=== PATIENT | female | born 1985 | race African-American/Black ===

== ENCOUNTER 2018-02-02 11:15 | Emergency (ER) | payer OTHER ==
[~2018-02-02] VITALS: Ht 172.7 cm; Wt 117.9 kg
[2018-02-02] MEDS ORDERED: SODIUM CHLORIDE 0.9% 500 ML IV ONE (13:06)
[2018-02-02] MEDS ORDERED: cefTRIAXone 1GM/10ml IVPUSH 10 ML IV ONE (13:15)
[2018-02-02] MEDS ORDERED: KETOROLAC TROMETH 30 MG/ML 1ML VIAL IV ONE (13:15)
[2018-02-02 13:41] LABS: Basophils # (auto) 0.1 uL; Basophils % (auto) 0.5 % (0.0-2.0); Eosinophils # (auto) 0 uL; Eosinophils % (auto) 0.1 % (0.0-7.0); Hematocrit 40.9 % (36.0-46.0); Hemoglobin 13.2 g/dL (12.2-16.2); Lymphocytes # (auto) 1.8 uL; Lymphocytes % (auto) 10.5 % (10.0-50.0); Mean Corpuscular Hemoglobin 28.4 pg (28.0-32.0); Mean Corpuscular Hgb Conc. 32.4 g/dL (32.0-36.0); Mean Corpuscular Volume 87.9 fL (80.0-100.0); Neutrophils # (auto) 13.9 uL; Neutrophils % (auto) 82.9 % (37.0-80.0); Platelet Count (auto) 307 10^3/uL (140-450); Red Blood Cells 4.66 10^6/uL (4.0-5.20); Red Cell Distribution Width 14.6 % (11.8-14.3); White Blood Cell 16.7 10^3/uL (4.4-10.8)
[2018-02-02 13:58] LABS: BUN/Creatinine Ratio 8.2; Calcium 9.1 mg/dL (8.5-10.1); Potassium 4.1 mmol/L (3.5-5.1)
[2018-02-02 15:46] VITALS: BP 114/74
[2018-02-02] MEDS ORDERED: ACETAMINOPHEN 325 MG TAB PO ONE (15:56)
[2018-02-02] MEDS ORDERED: methylPREDNISolone SOD SUCC 125 MG/2 ML VL IV ONE (17:00)
== END 2018-02-02 17:53 | disposition home or self-care (01) ==
LOC: EDBD 11:15 → ER 11:15
DX: J03.90 Acute tonsillitis, unspecified (principal); F17.210 Nicotine dependence, cigarettes, uncomplicated; R53.1 Weakness; Z90.710 Acquired absence of both cervix and uterus
CPT/HCPCS: 36415; 70490; 80048; 85025; 96374; 96375; 99285; J1885; J2930; J7040

== ENCOUNTER 2019-09-22 23:18 | Emergency (ER) | payer MEDICARE, OTHER ==
[~2019-09-22] VITALS: Ht 160 cm; Wt 120.7 kg
[2019-09-22 23:28] VITALS: BP 114/71
[2019-09-23] MEDS ORDERED: IBUPROFEN 800 MG TAB PO ONE (01:45)
[2019-09-23] MEDS ORDERED: ACETAMINOPHEN 500 MG TAB PO ONE (01:45)
== END 2019-09-23 02:25 | disposition home or self-care (01) ==
LOC: ER 23:23
DX: S83.92XA Sprain of unspecified site of left knee, initial encounter (principal); M62.830 Muscle spasm of back; F17.210 Nicotine dependence, cigarettes, uncomplicated; Z90.710 Acquired absence of both cervix and uterus; V09.9XXA Pedestrian injured in unspecified transport accident, initial encounter; Y93.01 Activity, walking, marching and hiking; Y92.481 Parking lot as the place of occurrence of the external cause; Y99.8 Other external cause status
CPT/HCPCS: 73562

== ENCOUNTER 2022-01-07 14:06 | Emergency (ER) | payer MEDICARE, OTHER ==
[~2022-01-07] VITALS: Ht 175.3 cm; Wt 127.0 kg
[2022-01-07 15:33] LABS: Basophils # (auto) 0.1 10 ^3/uL (0-0.2); Basophils % (auto) 0.8 % (0.0-2.0); Eosinophils # (auto) 0.1 10 ^3/uL (0-0.8); Eosinophils % (auto) 0.7 % (0.0-7.0); Hematocrit 37.5 % (36.0-46.0); Hemoglobin 12.6 g/dL (12.2-16.2); Lymphocytes # (auto) 2.4 10 ^3/uL (0.4-5.4); Mean Corpuscular Hemoglobin 29.4 pg (28.0-32.0); Mean Corpuscular Hgb Conc. 33.6 g/dL (32.0-36.0); Mean Corpuscular Volume 87.5 fL (80.0-100.0); Monocytes # (auto) 0.8 10 ^3/uL (0-1.3); Monocytes % (auto) 8.9 % (0.0-12.0); Neutrophils # (auto) 5.2 10 ^3/uL (1.6-8.6); Neutrophils % (auto) 61.6 % (37.0-80.0); Red Blood Cells 4.29 10^6/uL (4.0-5.20); Red Cell Distribution Width 14.7 % (11.8-14.3); White Blood Cell 8.5 10^3/uL (4.4-10.8)
[2022-01-07 15:52] LABS: Albumin 3.4 g/dL (3.4-5.0); BUN/Creatinine Ratio 13.3; Magnesium 2.3 mg/dL (1.6-2.6); Potassium 3.3 mmol/L (3.5-5.1)
[2022-01-07 15:55] LABS: Bilirubin, Total 0.4 mg/dL (0.2-1.0); Total Protein 7.9 g/dL (6.4-8.2)
[2022-01-07 20:44] VITALS: BP 105/67
== END 2022-01-07 21:49 | disposition home or self-care (01) ==
LOC: EDBD 14:06 → ER 14:08
DX: R07.89 Other chest pain (principal); F17.210 Nicotine dependence, cigarettes, uncomplicated; F12.10 Cannabis abuse, uncomplicated; Z32.02 Encounter for pregnancy test, result negative; Z90.710 Acquired absence of both cervix and uterus
CPT/HCPCS: 36415; 71045; 80053; 81025; 83735; 83880; 84484; 85025; 93005

== ENCOUNTER 2022-07-10 03:12 | Emergency (ER) | payer MEDICARE, OTHER ==
[~2022-07-10] VITALS: Ht 160 cm; Wt 111.0 kg
[2022-07-10] MEDS ORDERED: ACET-1158 PO (05:09)
[2022-07-10] MEDS ORDERED: PRED20TA2 PO ×2 (05:09→05:29)
[2022-07-10] MEDS ORDERED: AMOX-277 PO (05:09)
[2022-07-10 05:50] VITALS: BP 111/59
[2022-07-10 06:37] LABS: Urine Bacteria NONE SEEN /hpf (None Seen); Urine Blood 1+ /uL (Negative); Urine Mucus FEW (None Seen); Urine Specific Gravity 1.026 (1.001-1.035); Urine WBC 82 /hpf (0 - 5)
== END 2022-07-10 06:22 | disposition home or self-care (01) ==
LOC: ER 03:12
DX: J06.9 Acute upper respiratory infection, unspecified (principal); F17.210 Nicotine dependence, cigarettes, uncomplicated; Z20.822 Contact with and (suspected) exposure to COVID-19; Z90.710 Acquired absence of both cervix and uterus; Z98.890 Other specified postprocedural states
CPT/HCPCS: 36415; 81001; 87426; 87804

== ENCOUNTER 2024-04-20 11:08 | Emergency (ER) | payer MEDICARE, OTHER ==
[~2024-04-20] VITALS: Ht 160 cm; Wt 122.8 kg
[~2024-04-20 11:08] MED LIST: ACET500T58 PO; AMOX875T4 PO; CEPH-509 PO; IBUP-1456 PO; METH-1182 PO; PRED20TA2 PO
[2024-04-20 11:30] VITALS: BP 148/91; PULSE 97; RESP 18; O2SAT 97
[2024-04-20 11:59] LABS: Urine Bacteria None Seen /hpf (None Seen)
[2024-04-20 12:12] LABS: Urine Blood TRACE /uL (Negative); Urine Clarity Clear (Clear); Urine Color Yellow (Yellow); Urine Mucus FEW (None Seen); Urine Protein, UAD TRACE (Negative); Urine Specific Gravity 1.033 (1.001-1.035); Urine Urobilinogen Normal (Negative); Urine WBC 35 /hpf (0 - 5); Urine pH 5.5 (5.0-9.0)
== END 2024-04-20 16:02 | disposition left against medical advice (07) ==
LOC: ER 11:08
DX: R30.9 Painful micturition, unspecified (principal); M25.562 Pain in left knee; M25.561 Pain in right knee; Z53.21 Procedure and treatment not carried out due to patient leaving prior to being seen by health care provider
CPT/HCPCS: 81001

== ENCOUNTER 2024-09-29 08:56 | Inpatient (IN) | payer MEDICARE, OTHER ==
[~2024-09-29] VITALS: Ht 165.1 cm; Wt 122.0 kg
--- NOTE | 2024-09-29 10:01 | ED.PDOC ---
GI ASSESSMENT HPI Comments 39 year old female MARIANGEL presents to the ED with chief complaint of abdominal pain. Patient reports that she has been experiencing diffuse abdominal pain with associated nausea, vomiting, and right sided breast pain since yesterday. Patient relays that she currently has a colostomy bag in place and she had finished chemotherapy years ago for cancer. Patient denies any dysuria, diarrhea, fever, chills, dizziness, headache, or hematemesis. Chief Complaint: Abdominal Pain Time Seen by MD: 09:57 Primary Care Provider: unknown Reviewed Notes: Nurses Notes, Medications, Allergies Allergies: Coded Allergies: NO KNOWN ALLERGIES (Unverified , 02/02/18) Home Meds Active Scripts Methocarbamol (Methocarbamol) 750 Mg Tab, 750 MG PO BID, #20 TAB Prov:HARRIETT VENTURA 11/07/23 Ibuprofen (Ibuprofen) 800 Mg Tab, 1 TAB PO TID, #30 TAB Prov:HARRIETT VENTURA 11/07/23 Prednisone (Prednisone) 20 Mg Tab, 20 MG PO BID for 5 Days, #10 MG 0 Refills Prov:BRITTA SCOTT 07/10/22 Acetaminophen (Acetaminophen) 500 Mg Tab, 500 MG PO QIDP, #30 TAB 0 Refills Prov:BRITTA SCOTT 07/10/22 Amoxicillin & Pot Clavulanate (Amoxicillin/Potassium Cla) 875 Mg Tab, 1 TAB PO BID for 7 Days, #14 TAB 0 Refills Prov:BRITTA SCOTT 07/10/22 Cephalexin (KEFLEX 500) 500 Mg Cap, 1 CAP PO Q8HR for 7 Days, #21 CAP Prov:KENNY ORDONEZ MD 01/29/22 Information Source: Patient, Emergency Med Personnel Mode of Arrival: EMS Timing: Days Duration: Since onset Prehospital treatment: None Quality: Aching Vomitus: Watery Stool: Normal Severity: Moderate Recent: None Recent Hx of: Abdominal Surgery Pain Location: Diffuse Modifying Factors: Nothing Associated sign and symptoms: Nausea, Vomiting, Abdominal Pain Past Medical History PAST MEDICAL HISTORY: Cancer Surgical History: Hysterectomy Surgical History (Other): Colostomy [employer]ANT History: No Pertinent [employer] SAL[employer]ANT History Family History Family History: Reviewed,noncontributory to illness, Unknown Social History Smoker: Cigarettes, Less Than 1 Pack/Day Alcohol: Denies ETOH Use Drugs: Denies Drug Use Lives In: Home Constitutional: denies: chills, diaphoresis, fatigue, fever, malaise, sweats, weakness, others EENTM: denies: blurred vision, double vision, ear bleeding, ear discharge, ear drainage, ear pain, ear ringing, eye pain, eye redness, hearing loss, mouth pain, mouth swelling, nasal discharge, nose bleeding, nose congestion, nose pain, photophobia, tearing, throat pain, throat swelling, voice changes, others Respiratory: denies: cough, hemoptysis, orthopnea, SOB at rest, shortness of breath, SOB with excertion, stridor, wheezing, others Cardiovascular: denies: chest pain, dizzy spells, diaphoresis, Dyspnea on exertion, edema, irregular heart beat, left arm pain, lightheadedness, palpitations, PND, syncope, others Gastrointestinal: reports: abdominal pain, nausea, vomiting; denies: abdomen distended, blood streaked bowels, constipated, diarrhea, dysphagia, difficulty swallowing, hematemesis, melena, poor appetite, poor fluid intake, rectal bleeding, rectal pain, others Genitourinary: denies: abnormal vagina bleeding, burning, dyspareunia, dysuria, flank pain, frequency, hematuria, incontinence, pain, , vagina discharge, urgency, others Neurological: denies: dizziness, fainting, headache, left sided numbness, left sided weakness, numbness, paresthesia, pre-existing deficit, right sided numbness, right sided weakness, seizure, speech problems, tingling, tremors, weakness, others Musculoskeletal: reports: others (Rt sided breast pain); denies: back pain, gout, joint pain, joint swelling, muscle pain, muscle stiffness, neck pain Integumetry: denies: bruises, change in color, change in hair/nails, dryness, laceration, lesions, lumps, rash, wounds, others Allergic/Immunocompromised: denies: Difficulty Healing, Frequent Infections, Hives, Itching, others Hematologic/Lymphatic: denies: anemia, blood clots, easy bleeding, easy bruising, swollen glands, others Endocrine: denies: excessive hunger, excessive sweating, excessive thirst, excessive urination, flushing, intolerance to cold, intolerance to heat, un explained weight gain, unexplained weight loss, others Psychiatric: denies: anxiety, bipolar disorder, depression, hopeless, panic disorder, schizophrenia, sleepless, suicidal, others All Other Systems: Reviewed and Negative Physical Exam General Appearance: No Apparent Distress, Normal HEENT: Normal ENT Inspection, PERRL/EOMI Neck: Full Range of Motion, Non-Tender, Normal, Normal Inspection Respiratory: Chest Non-Tender, Lungs Clear, No Accessory Muscle Use, No Respiratory Distress, Normal Breath Sounds Cardiovascular: No Edema, No JVD, No Murmur, No Gallop, Normal Peripheral Pulses, Regular Rate/Rhythm Breast Exam: Deferred Gastrointestinal: No Organomegaly, No Pulsatile Mass, Normal Bowel Sounds, Soft, Tenderness (Diffuse tenderness), Other (Colostomy in place) Genitalia: Deferred Pelvic: Deferred Rectal: Deferred Extremities: No calf tenderness, Normal capillary refill, Normal inspection, Normal range of motion, Non-tender, No pedal edema Musculoskeletal : Apperance: Normal Neurologic: Alert, net coordinator II-XII nml as Tested, No Motor Deficits, Normal Affect, Normal Mood, No Sensory Deficits Cerebellar Function: Normal Reflexes: Normal Skin: Dry, Normal Color, Warm Lymphatic: No Adenopathy Was a procedure done? Was a procedure done?: No GI differential Dx Differential Diagnosis: UTI, Dehydration, Electrolyte Imbalance, Food Poisoning, Hypovolemia X-Ray, Labs, Meds, VS Vital Signs Date Time Temp Pulse Resp B/P (MAP) Pulse Ox O2 Delivery O2 Flow Rate FiO2 09/29/24 12:50 97.8 86 18 122/74 (90) 100 97.8 09/29/24 10:59 90 15 120/80 09/29/24 10:29 92 17 122/81 09/29/24 10:27 98.0 92 17 122/81 (95) 94 98.0 09/29/24 09:06 97.5 86 18 126/82 (97) 100 Lab Test 09/29/24 10:36 Range/Units White Blood Count 10.9 H 4.4-10.8 10^3/uL Red Blood Count 5.00 4.0-5.20 10^6/uL Hemoglobin 14.0 12.2-16.2 g/dL Hematocrit 42.7 36.0-46.0 % Mean Corpuscular Volume 85.5 80.0-100.0 fL Mean Corpuscular Hemoglobin 28.0 28.0-32.0 pg Mean Corpuscular Hemoglobin Concent 32.8 32.0-36.0 g/dL Red Cell Distribution Width 15.3 H 11.8-14.3 % Platelet Count 346 140-450 10^3/uL Mean Platelet Volume 7.8 6.9-10.8 fL Neutrophils (%) (Auto) 82.6 H 37.0-80.0 % Lymphocytes (%) (Auto) 11.3 10.0-50.0 % Monocytes (%) (Auto) 5.6 0.0-12.0 % Eosinophils (%) (Auto) 0.2 0.0-7.0 % Basophils (%) (Auto) 0.3 0.0-2.0 % Neutrophils # (Auto) 9.0 H 1.6-8.6 10 ^3/uL Lymphocytes # (Auto) 1.2 0.4-5.4 10 ^3/uL Monocytes # (Auto) 0.6 0-1.3 10 ^3/uL Eosinophils # (Auto) 0 0-0.8 10 ^3/uL Basophils # (Auto) 0 0-0.2 10 ^3/uL Nucleated Red Blood Cells 0.0 % Sodium Level 138 136-145 mmol/L Potassium Level 4.2 3.5-5.1 mmol/L Chloride Level 105 98-107 mmol/L Carbon Dioxide Level 27 20-31 mmol/L Anion Gap 6 5-15 Blood Urea Nitrogen 10 9-23 mg/dL Creatinine 0.82 0.550-1.02 mg/dL Glomerular Filtration Rate Calc 94 >90 mL/min BUN/Creatinine Ratio 12.2 10.0-20.0 Serum Glucose 119 H 74-106 mg/dL Calcium Level 9.5 8.7-10.4 mg/dL Total Bilirubin 0.4 0.2-1.0 mg/dL Aspartate Amino Transferase (AST) 15 13-40 U/L Alanine Aminotransferase (ALT) 22 7-40 U/L Alkaline Phosphatase 64 46-116 U/L Total Protein 6.3 5.7-8.2 g/dL Albumin 4.1 3.2-4.8 g/dL Current Medications Medications (Trade) Dose Ordered Sig/Oswaldo Route Start Time Stop Time Status Last Admin Sodium Chloride 1,000 ml @ 1,000 mls/hr Q1H ONCE IV 09/29/24 10:00 09/29/24 12:29 DC 09/29/24 10:29 Ondansetron HCl (Zofran) 4 mg ONCE ONCE IV 09/29/24 10:00 09/29/24 12:28 DC 09/29/24 10:28 Morphine Sulfate 4 mg ONCE ONCE IV 09/29/24 10:00 09/29/24 12:28 DC 09/29/24 10:29 Time of 1ST Reevaluation: 10:57 Reevaluation 1ST: Unchanged Patient Education/Counseling: Diagnosis, Treatment Family Education/Counseling: No Family Present Additional Information I reviewed the following notes from patient's past medical encounters: 04/20/24 for abdominal pain The following tests were ordered, and results were reviewed by me: CT Abd/Pel W/ IV Con, CBC, CMP, UA I reviewed and agreed with the following test results read by other providers: CT Abd/Pel W/ IV Con Additional Information was gathered from interviewing the following independent historians: none I discussed treatment and results with medical personnel. Departure 1 Departure Time of Disposition: 13:32 (Patient presented with abdominal pain that was concerning for possible appendicits, gastritis, cholecystitis, colitis, gastroenteritis, sbo, or orther possible surgical emergency. Data: 1. I ordered and reviewed the result of at least 3 labs including a CBC, BMP, and Urinalysis. 2. I independently interpreted the following tests: CT Abdoment and Pelvis is concerning for intractable abdominal pain _ .Risk:This patient has a high risk of morbidity due to further diagnostic testing or treatment and may suffer from an acute abdominal process disorder. Workup reveals intractable abdominal pain and patient should be admitted for further workup. and possible expert consultation. ) Impression: Primary Impression: Intractable abdominal pain Disposition: ADMITTED INPATIENT Admit to: Med Surg Condition: Serious Critical Care Note Critical Care Time?: No Stability Stability form required: No Heart Score Heart Score: Heart Score Response (Comments) Value History N/A 0 EKG N/A 0 Age N/A 0 Risk Factors N/A 0 Troponin N/A 0 Total 0 I personally scribed for BRIANNE PAZ MD ([email or web address]) on 09/29/24 at 10:01. Electronically submitted by Khari Gallo ([email or web address]). BRIANNE PAZ MD Sep 29, 2024 10:01
[2024-09-29] MEDS: ONDANSETRON HCL 4 MG/2 ML VIAL IV ONE (10:28)
[2024-09-29] MEDS: MORPHINE SULFATE 4 MG/ML SYR/VIAL IV ONE (10:29)
[2024-09-29] MEDS: SODIUM CHLORIDE 0.9% 1,000 ML IV ONE (10:29)
[2024-09-29 11:35] LABS: Basophils # (auto) 0 10 ^3/uL (0-0.2); Basophils % (auto) 0.3 % (0.0-2.0); Eosinophils # (auto) 0 10 ^3/uL (0-0.8); Eosinophils % (auto) 0.2 % (0.0-7.0); Hematocrit 42.7 % (36.0-46.0); Lymphocytes # (auto) 1.2 10 ^3/uL (0.4-5.4); Lymphocytes % (auto) 11.3 % (10.0-50.0); Mean Corpuscular Hgb Conc. 32.8 g/dL (32.0-36.0); Mean Corpuscular Volume 85.5 fL (80.0-100.0); Monocytes # (auto) 0.6 10 ^3/uL (0-1.3); Monocytes % (auto) 5.6 % (0.0-12.0); Neutrophils % (auto) 82.6 % (37.0-80.0); Platelet Count (auto) 346 10^3/uL (140-450); Red Cell Distribution Width 15.3 % (11.8-14.3); White Blood Cell 10.9 10^3/uL (4.4-10.8)
[2024-09-29 11:51] LABS: Alanine Aminotransferase 22 U/L (7-40); Calcium 9.5 mg/dL (8.7-10.4); Carbon Dioxide 27 mmol/L (20-31); Chloride 105 mmol/L (98-107)
[2024-09-29 11:52] LABS: Albumin 4.1 g/dL (3.2-4.8); Anion Gap 6 (5-15); Aspartate Aminotransferase 15 U/L (13-40); BUN/Creatinine Ratio 12.2 (10.0-20.0); Bilirubin, Total 0.4 mg/dL (0.2-1.0); Blood Urea Nitrogen 10 mg/dL (9-23); Glucose 119 mg/dL (74-106); Potassium 4.2 mmol/L (3.5-5.1); Sodium 138 mmol/L (136-145); Total Protein 6.3 g/dL (5.7-8.2)
[2024-09-29 12:27] LABS: Alkaline Phosphatase 64 U/L (46-116)
--- NOTE | 2024-09-29 13:08 | DVH ---
Exam: CT CT AB PEL WITH IV CON ONLY History: worsening abdominal pain, hx of colon ca s/p colostomy TECHNIQUE: A digital erosion control coordinator image was obtained. During the uneventful, intravenous administration of c ontrast material, multislice data acquisition was obtained through the abdomen and pelvis. The data s et was subsequently reconstructed into axial images. Images were reviewed on a work station using a c ombination of axial and multiplanar using a variety of window levels and settings. 100 cc of Omnipaqu e 300 contrast was injected intravenously. All CT scans at this medical facility are performed using dose modulation techniques as appropriate t o a performed exam including the following:Automated exposure control was utilized; adjustment of the MA and/or KV according to patient size; and use of iterative reconstruction technique. Radiation Dose Information: CT Dose: CTDI volume is 25 mGy. Dose-length product is 14 80 mGy*cm Comparison: None FINDINGS: Theliver, gallbladder, pancreas, kidneys, adrenal glands, and spleen appear within normal limits. There is no evidence of abdominal lymphadenopathy. There is no free fluid or free air. The stomach grossly appears unremarkable. There are large bowel postsurgical changes with left lower quadrant colostomy. There has likely been resection of the distal colon. There is presacral irregular soft tissue thickening which May relate to postsurgical changes. The remaining large bowel loops maki ear within normal limits filled with stool and air. There are mildly prominent fluid-filled small [place] wel loops in the lower abdomen measuring up to 2.7 cm in diameter. The abdominal aorta and IVC appear within normal limits. The bladder appears within normal limits the degree of distention. There is likely large calcified l eiomyoma in the uterus. There is no evidence of pelvic lymphadenopathy. There is no significant free fluid collection. Lung bases are clear. There is no acute osseous abnormality. IMPRESSION: 1. There are large bowel postsurgical changes with left lower quadrant colostomy. There is likely be en resection of the distal colon. There is presacral irregular soft tissue thickening which May relat e to postsurgical changes. Clinical correlation and comparison with any available prior CT studies is recommended. 2. There are mildly prominent fluid-filled small bowel loops in the lower abdomen. Small-bowel ileus not excluded. 3. Likely large calcified leiomyoma in the uterus. HS:Y
[2024-09-29 14:19] LABS: Urine Bacteria None Seen /hpf (None Seen)
[2024-09-29 14:37] LABS: Urine Blood Negative /uL (Negative); Urine Clarity Clear (Clear); Urine Color Light-Yellow (Yellow); Urine Protein, UAD 1+ (Negative); Urine Squamous Epithelial Cell FEW /hpf (<5); Urine Urobilinogen Normal (Negative); Urine WBC 1 /HPF (0-5)
[2024-09-29 14:41] LABS: Urine Specific Gravity > 1.050 (1.001-1.035)
[2024-09-29] MEDS ORDERED: DOCUSATE SOD 100 MG CAP PO PRN (14:45)
--- NOTE | 2024-09-29 14:57 | DVHHP2 ---
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 She came in today for complaints of abdominal pain, nausea, and vomiting. Patient states her symptoms began yesterday, she last vomited about 0200 this morning. States her abdomen is firm, the pain is right and left upper quadrant and that she has not had the normal about of stool output today. Heme/Onc: Cancer (Rhabdomyosarcoma 17 years ago, treated with surgery, chemo, & radiation) Past Surgical History: Other (Colostomy ) Family History: None Smoke: 1 pack per day ALCOHOL: rare Drugs: None Lives: with Family Domestic Violence: Neg Review of Systems Constitutional: No: Fever, Chills, Sweats, Weakness, Malaise, Other Eyes: No: Pain, Vision change, Conjunctivae inflammation, Eyelid inflammation, Other, Redness ENT: No: Ear pain, Ear discharge, Nose pain, Nose discharge, Nose congestion, Mouth pain, Mouth swelling, Throat pain, Throat swelling, Other Respiratory: No: Cough, Dry, Shortness of breath, SOB with excertion, Wheezing, Hemoptysis, Pleuritic Pain, Sputum, Wheezing, Other Cardiovascular: No: Chest Pain, Palpitations, Orthopnea, Paroxysmal Noc. Dyspnea, Edema, Lt Headedness, Other Gastrointestinal: Nausea, Vomiting, Abdominal Pain, Constipation; No: Diarrhea, Melena, Hematochezia, Other Genitourinary: No Dysuria, No Frequency, No Incontinence, No Hematuria, No Retention, No Other Musculoskeletal: No: other, neck pain, shoulder pain, arm pain, back pain, hand pain, leg pain, foot pain Skin: No: Rash, Lesions, Jaundice, Bruising, Other Neurological: No: Weakness, Numbness, Incoordination, Change in speech, Confusion, Seizures, Other Allergies: Coded Allergies: NO KNOWN ALLERGIES (Unverified , 02/02/18) Exam Vital Signs Vital Signs Date Time Temp Pulse Resp B/P (MAP) Pulse Ox O2 Delivery O2 Flow Rate FiO2 09/29/24 12:50 97.8 86 18 122/74 (90) 100 97.8 General Appearance: Alert, Oriented X3, mild distress HEENT: Atraumatic, PERRLA Respiratory: Clear to auscultation, Normal air movement Cardiovascular: Regular rate, Normal S1, Normal S2 Abdominal: Other (epigastric pain, colostomy in place with minimal output, abd firm) Extremities: No clubbing, No cyanosis, No edema, Normal pulses Skin: No rashes, No breakdown, No significant lesion Neuro: Normal gait, Normal speech, Strength at 5/5 X4 ext Psych/Mental Status: Mental status NL Labs/Xrays Labs Test 09/29/24 10:36 09/29/24 09:00 Range/Units White Blood Count 10.9 H 4.4-10.8 10^3/uL Red Blood Count 5.00 4.0-5.20 10^6/uL Hemoglobin 14.0 12.2-16.2 g/dL Hematocrit 42.7 36.0-46.0 % Mean Corpuscular Volume 85.5 80.0-100.0 fL Mean Corpuscular Hemoglobin 28.0 28.0-32.0 pg Mean Corpuscular Hemoglobin Concent 32.8 32.0-36.0 g/dL Red Cell Distribution Width 15.3 H 11.8-14.3 % Platelet Count 346 140-450 10^3/uL Mean Platelet Volume 7.8 6.9-10.8 fL Neutrophils (%) (Auto) 82.6 H 37.0-80.0 % Lymphocytes (%) (Auto) 11.3 10.0-50.0 % Monocytes (%) (Auto) 5.6 0.0-12.0 % Eosinophils (%) (Auto) 0.2 0.0-7.0 % Basophils (%) (Auto) 0.3 0.0-2.0 % Neutrophils # (Auto) 9.0 H 1.6-8.6 10 ^3/uL Lymphocytes # (Auto) 1.2 0.4-5.4 10 ^3/uL Monocytes # (Auto) 0.6 0-1.3 10 ^3/uL Eosinophils # (Auto) 0 0-0.8 10 ^3/uL Basophils # (Auto) 0 0-0.2 10 ^3/uL Nucleated Red Blood Cells 0.0 % Sodium Level 138 136-145 mmol/L Potassium Level 4.2 3.5-5.1 mmol/L Chloride Level 105 98-107 mmol/L Carbon Dioxide Level 27 20-31 mmol/L Anion Gap 6 5-15 Blood Urea Nitrogen 10 9-23 mg/dL Creatinine 0.82 0.550-1.02 mg/dL Glomerular Filtration Rate Calc 94 >90 mL/min BUN/Creatinine Ratio 12.2 10.0-20.0 Serum Glucose 119 H 74-106 mg/dL Calcium Level 9.5 8.7-10.4 mg/dL Total Bilirubin 0.4 0.2-1.0 mg/dL Aspartate Amino Transferase (AST) 15 13-40 U/L Alanine Aminotransferase (ALT) 22 7-40 U/L Alkaline Phosphatase 64 46-116 U/L Total Protein 6.3 5.7-8.2 g/dL Albumin 4.1 3.2-4.8 g/dL Urine Color Light-yellow Yellow Urine Clarity Clear Clear Urine pH 8.0 5.0-9.0 Urine Specific [place] > 1.050 H 1.001-1.035 Urine Protein 1+ H Negative Urine Ketones Negative Negative Urine Blood Negative Negative /uL Urine Nitrite Negative Negative Urine Bilirubin Negative Negative Urine Urobilinogen Normal Negative mg/dL Urine Leukocyte Esterase Negative Negative /uL Urine RBC 1 0 - 4 /hpf Urine Microscopic WBC 1 0-5 /HPF Urine Squamous Epithelial Cells Few <5 /hpf Urine Bacteria None seen None Seen /hpf Urine Glucose Normal Normal mg/dL Exam: CT CT AB PEL WITH IV CON ONLY FINDINGS: The liver, gallbladder, pancreas, kidneys, adrenal glands, and spleen appear within normal limits. There is no evidence of abdominal lymphadenopathy. There is no free fluid or free air. The stomach grossly appears unremarkable. There are large bowel postsurgical changes with left lower quadrant colostomy. There has likely been resection of the distal colon. There is presacral irregular soft tissue thickening which May relate to postsurgical changes. The remaining large bowel loops appear within normal limits filled with stool and air. There are mildly prominent fluid- filled small bowel loops in the lower abdomen measuring up to 2.7 cm in diameter. The abdominal aorta and IVC appear within normal limits. The bladder appears within normal limits the degree of distention. There is likely large calcified leiomyoma in the uterus. There is no evidence of pelvic lymphadenopathy. There is no significant free fluid collection. Lung bases are clear. There is no acute osseous abnormality. IMPRESSION: 1. There are large bowel postsurgical changes with left lower quadrant colostomy. There is likely been resection of the distal colon. There is presacral irregular soft tissue thickening which May relate to postsurgical changes. Clinical correlation and comparison with any available prior CT studies is recommended. 2. There are mildly prominent fluid-filled small bowel loops in the lower abdomen. Small-bowel ileus not excluded. 3. Likely large calcified leiomyoma in the uterus. Assessment/Plan Assessment/Plan Assessment: Intractable abdominal pain, Possible illus, Possible bowel obstruction, Plan: Admit to Med-Surg, GI consult, Clear liquid diet, Pain management, IV hydration, Plan discussed with: Patient My Orders Orders - NIKOLAI GALAN Procedure Category Date Status Time * Gi Dvh Puppy Sitter CONS 09/29/24 Transmitted 14:42 Admit ADMIT 09/29/24 Transmitted 14:42 Code Status CODE 09/29/24 Transmitted 14:42 Hydrocodone-Acet PHA 09/29/24 Transmitted 5/325mg Tab ([place] 14:45 Ondansetron Hcl PHA 09/29/24 Transmitted (Zofran) 14:45 Docusate Sodium PHA 09/29/24 Transmitted Capsule ([place] 14:45 Complete Blood Count LAB 09/30/24 Verified 04:00 Comprehensive LAB 09/30/24 Verified Metabolic Panel 04:00 Condition: Serious CHARLETTE 09/29/24 Transmitted 14:42 Acetaminophen Tablet PHA 09/29/24 Transmitted (Tylenol Tablet) 14:45 Clear Liq Diet DIET 09/29/24 Transmitted Dinner Date of Service: Sep 29, 2024 Billing Provider: NIKOLAI GALAN Common Visit Codes: [id number] INP/OBS CARE (MOD) NIKOLAI GALAN Sep 29, 2024 14:56
[2024-09-29 15:52] VITALS: BP 120/70; PULSE 67; PULSE 76; RESP 16; RESP 18; TEMP 98.4; O2SAT 100; O2SAT 98
[2024-09-29 16:06] VITALS: BP 120/70; PULSE 67; RESP 18; TEMP 98.4; O2SAT 100
[2024-09-29] MEDS: HYDROcodone-ACET 5/325MG TAB PO PRN (20:06)
[2024-09-29 21:00] VITALS: BP 134/73; PULSE 86; RESP 19; TEMP 98.7; O2SAT 95
[2024-09-30 01:00] VITALS: BP 122/57; PULSE 79; RESP 20; TEMP 98.2; O2SAT 97
[2024-09-30 05:00] VITALS: BP 128/66; PULSE 98; RESP 20; TEMP 98.9; O2SAT 94
[2024-09-30 06:38] LABS: Basophils # (auto) 0 10 ^3/uL (0-0.2); Basophils % (auto) 0.2 % (0.0-2.0); Eosinophils # (auto) 0 10 ^3/uL (0-0.8); Eosinophils % (auto) 0.5 % (0.0-7.0); Hematocrit 40.2 % (36.0-46.0); Lymphocytes # (auto) 0.4 10 ^3/uL (0.4-5.4); Lymphocytes % (auto) 6.9 % (10.0-50.0); Mean Corpuscular Hemoglobin 27.9 pg (28.0-32.0); Mean Corpuscular Hgb Conc. 32.4 g/dL (32.0-36.0); Monocytes # (auto) 0.3 10 ^3/uL (0-1.3); Monocytes % (auto) 5.3 % (0.0-12.0); Neutrophils # (auto) 5.3 10 ^3/uL (1.6-8.6); Neutrophils % (auto) 87.1 % (37.0-80.0); Nucleated Red Blood Cells % 0.1 %; Platelet Count (auto) 319 10^3/uL (140-450); Red Blood Cells 4.67 10^6/uL (4.0-5.20); Red Cell Distribution Width 15.3 % (11.8-14.3); White Blood Cell 6.1 10^3/uL (4.4-10.8)
[2024-09-30 07:19] LABS: Alanine Aminotransferase 18 U/L (7-40); Alkaline Phosphatase 56 U/L (46-116); Anion Gap 8 (5-15); BUN/Creatinine Ratio 6.3 (10.0-20.0); Carbon Dioxide 23 mmol/L (20-31); Chloride 103 mmol/L (98-107)
[2024-09-30 07:20] LABS: Albumin 3.8 g/dL (3.2-4.8); Bilirubin, Total 0.8 mg/dL (0.2-1.0)
[2024-09-30 07:30] LABS: Aspartate Aminotransferase 12 U/L (13-40); Blood Urea Nitrogen 6 mg/dL (9-23); Glucose 129 mg/dL (74-106); Sodium 134 mmol/L (136-145)
[2024-09-30 08:00] VITALS: PULSE 82; RESP 16; O2SAT 96
[2024-09-30 09:00] VITALS: BP 114/67; PULSE 103; RESP 20; TEMP 98.5; O2SAT 99
--- NOTE | 2024-09-30 09:45 | DVHPN2 ---
Subjective patient notes BM in colostomy bad . pain with minimal improvement. Taking norco regulary in hospital. Reviewed: H&P Changes from previous H/P or p: No Changes Eyes: No Pain, No Vision change, No Conjunctivae inflammation, No Eyelid inflammation, No Other, No Redness ENT: No Ear pain, No Ear discharge, No Nose pain, No Nose discharge, No Nose congestion, No Mouth pain, No Mouth swelling, No Throat pain, No Throat swelling, No Other Cardiovascular: No Chest Pain, No Palpitations, No Orthopnea, No Paroxysmal Noc. Dyspnea, No Edema, No Lt Headedness, No Other Respiratory: No Cough, No Dry, No Shortness of breath, No SOB with excertion, No Wheezing, No Hemoptysis, No Pleuritic Pain, No Sputum, No Other Gastrointestinal: Nausea, Vomiting, Abdominal Pain; No Diarrhea; Constipation; No Melena, No Hematochezia, No Other Genitourinary: No Dysuria, No Frequency, No Incontinence, No Hematuria, No Retention, No Other Musculoskeletal: No other, No neck pain, No shoulder pain, No arm pain, No back pain, No hand pain, No leg pain, No foot pain Skin: No Rash, No Lesions, No Jaundice, No Bruising, No Other Objective Vitals Vital Signs Date Time Temp Pulse Resp B/P (MAP) Pulse Ox O2 Delivery O2 Flow Rate FiO2 09/30/24 05:00 98.9 98 20 128/66 (86) 94 98.9 09/29/24 23:09 Room Air* 0 21 Intake/Output Intake and Output 09/30/24 07:00 Intake Total 2080 ml Balance 2080 ml Intake Oral 1080 ml IV Total 1000 ml # Voids 3 # Bowel Movements 1 General Appearance: Alert, Oriented X3 HEENT: Atraumatic Lungs: Clear to auscultation Cardiovascular: Regular rate, Normal S1, Normal S2 Abdomen: Other (colostomy in place LLQ. TTP over the Epigastric and umbilical region. ) Extremities: Other (1+ edema LE to claf .) Psych/Mental Status: Mental status NL Medications Current Medications Medications Dose Ordered Sig/Oswaldo Route Start Time Stop Time Status Last Admin Dose Admin Acetaminophen/ Hydrocodone Bitart 1 tab Q4HP PRN PO 09/29/24 14:45 09/30/24 02:15 1 TAB Ondansetron HCl 4 mg Q4HP PRN IV 2/11/25 14:45 Docusate Sodium 100 mg BIDPRN PRN PO 09/29/24 14:45 Acetaminophen 650 mg Q6HP PRN PO 09/29/24 14:45 Laboratory Results Laboratory Tests 09/30/24 05:50 Chemistry Test 09/29/24 10:36 09/30/24 05:50 Albumin 4.1 g/dL (3.2-4.8) 3.8 g/dL (3.2-4.8) Calcium Level 9.5 mg/dL (8.7-10.4) 9.0 mg/dL (8.7-10.4) Total Protein 6.3 g/dL (5.7-8.2) 6.0 g/dL (5.7-8.2) LFT Test 09/29/24 10:36 09/30/24 05:50 Alanine Aminotransferase (ALT) 22 U/L (7-40) 18 U/L (7-40) Alkaline Phosphatase 64 U/L (46-116) 56 U/L (46-116) Aspartate Amino Transferase (AST) 15 U/L (13-40) 12 U/L (13-40) L Total Bilirubin 0.4 mg/dL (0.2-1.0) 0.8 mg/dL (0.2-1.0) Urinalysis Test 09/29/24 09:00 Urine Color Light-yellow (Yellow) Urine Clarity Clear (Clear) Urine pH 8.0 (5.0-9.0) Urine Specific [place] > 1.050 (1.001-1.035) Urine Protein 1+ (Negative) H Urine Ketones Negative (Negative) Urine Blood Negative /uL (Negative) Urine Nitrite Negative (Negative) Urine Bilirubin Negative (Negative) Urine Urobilinogen Normal mg/dL (Negative) Urine Leukocyte Esterase Negative /uL (Negative) Urine RBC 1 /hpf (0 - 4) Urine Microscopic WBC 1 /HPF (0-5) Urine Squamous Epithelial Cells Few /hpf (<5) Urine Bacteria None seen /hpf (None Seen) Urine Glucose Normal mg/dL (Normal) Assessment/Plan Assessment/Plan Intractable abdominal pain, illus Right breast mass Obesity - CLD - limit IV fluids - BNP for LE edema - Ct Chest for right breast mass - limit opiods. - f/u GI consult. Plan discussed with: Patient My Orders Orders - KIERSTEN JACKSON MD Procedure Category Date Status Time Chest Without Contrast CT 09/30/24 Logged 09:28 B-Type Natriuretic LAB 09/30/24 Logged Peptide 09:32 Complete Blood Count LAB 10/01/24 Verified 04:00 Comprehensive LAB 09/30/24 Logged Metabolic Panel 09:32 Date of Service: Sep 30, 2024 Billing Provider: KIERSTEN JACKSON MD Common Visit Codes: [id number] INP/OBS CARE(HIGH) KIERSTEN JACKSON MD Sep 30, 2024 09:45
--- NOTE | 2024-09-30 11:28 | DVH ---
Procedure: CT CHEST WITHOUT CONTRAST Reason for study/Clinical History: Right breast mass @ 9 o clock . Comparison Study: None available at time of dictation. Exam Date: 09/30/2024 09:45 AM TECHNIQUE: Multidetector CT of the chest was performed from the lung apices to the upper abdomen with out the use of intravenous contract. Axial, coronal and sagittal multiplanar reformats were performed . Radiation Dose Information: CT Dose: CTDI volume is 30.63 mGy. Dose-length product is 937.49 mGy*cm The dose indicators for CT are the volume Computed Tomography (CT) Dose Index (CTDIvol) and the Dose Length Product (DLP), and are measured in units of mGy and mGy-cm, respectively. These indicators are not patient dose, but values generated from the CT scanner acquisition factors. The report includes radiation exposure data for exposures received during this examination. FINDINGS: Lower neck: Normal thyroid. Lungs: No focal consolidation, pleural effusion or pneumothorax. Heart/Vascular Structures: Normal heart size. No pericardial effusion. Lymph Nodes: No adenopathy Pleura: No pleural effusion or significant pneumothorax. Musculoskeletal: No acute osseous abnormality. Soft tissues: Normal. Upper abdomen: Limited portions of the upper abdomen are unremarkable. IMPRESSION: No acute intrathoracic abnormality. Radiation optimization: All CT scans at this facility use at least one of these dose optimization katie hniques: automated exposure control mA and/or kV adjustment per patient size (includes targeted exam s where dose is matched to clinical indication) or iterative reconstruction.
--- NOTE | 2024-09-30 11:52 | DVHINCON2 ---
GI Consult Consult Note GI consult note Date of Consultation: 09/30/2024 Chief Complaint: Abdominal pain Referring Physician: Roberto BECKER H&P: 39-year-old female with PMH of rhabdomyosarcoma, which was diagnosed 17 years ago, treated with chemo and radiation, and SP colostomy bag, presented to ER with abdominal pain mostly in the upper abdomen, for three days Patient had nausea and vomiting. No hematemesis Patient now has watery stool, no melena or red blood in stool Colonoscopy more than 10 years ago unsure about results Past Medical History: Cancer (Rhabdomyosarcoma 17 years ago, treated with surgery, chemo, & radiation) Past Surgical History: Colostomy Social History: Smoke: 1 pack per day ALCOHOL: rare Drugs: None Lives: with Family Family History: Noncontributory Review of Systems: Constitutional: no fever, chill, weight loss HEENT: no eye pain, no hearing loss, no oral lesion, no scleral icterus Heart: no chest pain, no chest pressure Lung: no cough, no dyspnea with exertion Abdomen: see HPI Physical exam: General: NAD, AAOX3 Chest: lung chandler clear to auscultation Heart: RRR, no murmur Abdomen: Mild generalized tenderness to palpation, +BS Labs: Labs Test 09/30/24 11:00 09/30/24 05:50 09/29/24 09:00 Range/Units White Blood Count 6.1 # 4.4-10.8 10^3/uL Red Blood Count 4.67 4.0-5.20 10^6/uL Hemoglobin 13.0 12.2-16.2 g/dL Hematocrit 40.2 36.0-46.0 % Mean Corpuscular Volume 86.0 80.0-100.0 fL Mean Corpuscular Hemoglobin 27.9 L 28.0-32.0 pg Mean Corpuscular Hemoglobin Concent 32.4 32.0-36.0 g/dL Red Cell Distribution Width 15.3 H 11.8-14.3 % Platelet Count 319 140-450 10^3/uL Mean Platelet Volume 7.6 6.9-10.8 fL Neutrophils (%) (Auto) 87.1 H 37.0-80.0 % Lymphocytes (%) (Auto) 6.9 L 10.0-50.0 % Monocytes (%) (Auto) 5.3 0.0-12.0 % Eosinophils (%) (Auto) 0.5 0.0-7.0 % Basophils (%) (Auto) 0.2 0.0-2.0 % Neutrophils # (Auto) 5.3 1.6-8.6 10 ^3/uL Lymphocytes # (Auto) 0.4 0.4-5.4 10 ^3/uL Monocytes # (Auto) 0.3 0-1.3 10 ^3/uL Eosinophils # (Auto) 0 0-0.8 10 ^3/uL Basophils # (Auto) 0 0-0.2 10 ^3/uL Nucleated Red Blood Cells 0.1 % Urine Color Light-yellow Yellow Urine Clarity Clear Clear Urine pH 8.0 5.0-9.0 Urine Specific [place] > 1.050 H 1.001-1.035 Urine Protein 1+ H Negative Urine Ketones Negative Negative Urine Blood Negative Negative /uL Urine Nitrite Negative Negative Urine Bilirubin Negative Negative Urine Urobilinogen Normal Negative mg/dL Urine Leukocyte Esterase Negative Negative /uL Urine RBC 1 0 - 4 /hpf Urine Microscopic WBC 1 0-5 /HPF Urine Squamous Epithelial Cells Few <5 /hpf Urine Bacteria None seen None Seen /hpf Urine Glucose Normal Normal mg/dL Imaging: CT abdomen pelvis IMPRESSION: 1. There are large bowel postsurgical changes with left lower quadrant colostomy. There is likely been resection of the distal colon. There is presacral irregular soft tissue thickening which May relate to postsurgical changes. Clinical correlation and comparison with any available prior CT studies is recommended. 2. There are mildly prominent fluid-filled small bowel loops in the lower ab domen. Small-bowel ileus not excluded. 3. Likely large calcified leiomyoma in the uterus. Chest CT IMPRESSION: No acute intrathoracic abnormality. Assessment: Acute abdominal pain Possible ileus. Possible bowel obstruction History of rhabdomyosarcoma, with colostomy bag Plan: Discussed with Dr. Weiner Small-bowel series with Gastrografin Monitor lab Clear liquid diet We will continue to monitor the patient Plan discussed with patient and RN Thank you for this consult Date of Service: Sep 30, 2024 Billing Provider: MICAH OVALLE Common Visit Codes: CONSULT ONLY Consultation Codes: [id number] CONSULT <60MIN MICAH OVALLE Sep 30, 2024 11:52
[2024-09-30] MEDS: GASTROGRAFIN 120 ML SOL ONE (12:35)
--- NOTE | 2024-09-30 12:35 | DVH ---
Date: 09/30/2024 11:35 AM Examination: XY KUB ABDOMEN SINGLE VIEW History: f/u ileus Comparison: 09/29/2024 TECHNIQUE: Frontal views of the abdomen was obtained. FINDINGS: Dilated loops of small bowel measuring up to 4.8 cm. The lung bases are unremarkable. No acute osseous abnormality identified. IMPRESSION: Dilated loops small bowel measuring up to 4.8 cm. Findings may reflect ileus versus small-bowel obstr uction
[2024-09-30 13:29] LABS: Alanine Aminotransferase 23 U/L (7-40); Alkaline Phosphatase 57 U/L (46-116); Anion Gap 9 (5-15); Aspartate Aminotransferase 23 U/L (13-40); BUN/Creatinine Ratio 6.7 (10.0-20.0); Bilirubin, Total 0.7 mg/dL (0.2-1.0); Calcium 9.2 mg/dL (8.7-10.4); Carbon Dioxide 21 mmol/L (20-31); Chloride 104 mmol/L (98-107); Glucose 105 mg/dL (74-106); Potassium 4.3 mmol/L (3.5-5.1); Total Protein 6.3 g/dL (5.7-8.2)
[2024-09-30 13:45] LABS: Blood Urea Nitrogen 7 mg/dL (9-23); Sodium 134 mmol/L (136-145)
[2024-09-30 17:00] VITALS: BP 115/69; PULSE 101; RESP 19; TEMP 98.3; O2SAT 98
[2024-09-30 21:00] VITALS: BP 117/74; PULSE 106; RESP 18; TEMP 98.4; O2SAT 95
[2024-09-30] MEDS: ACETAMINOPHEN 325 MG TAB PO PRN (23:45)
[2024-10-01] VITALS (7 sets, daily range): BP systolic 103–125; BP diastolic 58–74; PULSE 90–118; RESP 17–19; TEMP 98.1–98.7; O2SAT 96–100
[2024-10-01 07:35] LABS: Basophils # (auto) 0 10 ^3/uL (0-0.2); Basophils % (auto) 0.2 % (0.0-2.0); Eosinophils # (auto) 0.2 10 ^3/uL (0-0.8); Eosinophils % (auto) 3.7 % (0.0-7.0); Hematocrit 43.1 % (36.0-46.0); Hemoglobin 14.8 g/dL (12.2-16.2); Lymphocytes # (auto) 1.5 10 ^3/uL (0.4-5.4); Lymphocytes % (auto) 23.5 % (10.0-50.0); Mean Corpuscular Hemoglobin 29.4 pg (28.0-32.0); Mean Corpuscular Hgb Conc. 34.3 g/dL (32.0-36.0); Mean Corpuscular Volume 85.6 fL (80.0-100.0); Monocytes # (auto) 1.1 10 ^3/uL (0-1.3); Monocytes % (auto) 17.3 % (0.0-12.0); Neutrophils # (auto) 3.6 10 ^3/uL (1.6-8.6); Neutrophils % (auto) 55.3 % (37.0-80.0); Platelet Count (auto) 373 10^3/uL (140-450); Red Blood Cells 5.03 10^6/uL (4.0-5.20); Red Cell Distribution Width 15.1 % (11.8-14.3); White Blood Cell 6.5 10^3/uL (4.4-10.8)
--- NOTE | 2024-10-01 10:49 | DVHPN2 ---
Subjective patient sleeping comfrotably. Pain improved. BM in colosotmy bag. Reviewed: H&P Changes from previous H/P or p: No Changes Eyes: No Pain, No Vision change, No Conjunctivae inflammation, No Eyelid inflammation, No Other, No Redness ENT: No Ear pain, No Ear discharge, No Nose pain, No Nose discharge, No Nose congestion, No Mouth pain, No Mouth swelling, No Throat pain, No Throat swelling, No Other Cardiovascular: No Chest Pain, No Palpitations, No Orthopnea, No Paroxysmal Noc. Dyspnea, No Edema, No Lt Headedness, No Other Respiratory: No Cough, No Dry, No Shortness of breath, No SOB with excertion, No Wheezing, No Hemoptysis, No Pleuritic Pain, No Sputum, No Other Gastrointestinal: Nausea, Vomiting, Abdominal Pain; No Diarrhea; Constipation; No Melena, No Hematochezia, No Other Genitourinary: No Dysuria, No Frequency, No Incontinence, No Hematuria, No Retention, No Other Musculoskeletal: No other, No neck pain, No shoulder pain, No arm pain, No back pain, No hand pain, No leg pain, No foot pain Skin: No Rash, No Lesions, No Jaundice, No Bruising, No Other Objective Vitals Vital Signs Date Time Temp Pulse Resp B/P (MAP) Pulse Ox O2 Delivery O2 Flow Rate FiO2 10/01/24 09:00 98.2 90 17 110/58 (75) 99 98.2 10/01/24 08:00 Room Air* 0 21 Intake/Output Intake and Output 10/01/24 07:00 Intake Total 650 ml Output Total 1450 ml Balance -800 ml Intake Oral 650 ml Output Urine Total 300 ml Stool Total 1150 ml # Voids 10 General Appearance: Alert, Oriented X3 HEENT: Atraumatic Lungs: Clear to auscultation Cardiovascular: Regular rate, Normal S1, Normal S2 Abdomen: Other (colostomy in place LLQ. TTP over the Epigastric and umbilical region. ) Extremities: Other (1+ edema LE to claf .) Psych/Mental Status: Mental status NL Medications Current Medications Medications Dose Ordered Sig/Oswaldo Route Start Time Stop Time Status Last Admin Dose Admin Acetaminophen/ Hydrocodone Bitart 1 tab Q4HP PRN PO 09/29/24 14:45 09/30/24 02:15 1 TAB Ondansetron HCl 4 mg Q4HP PRN IV 09/29/24 14:45 Docusate Sodium 100 mg BIDPRN PRN PO 09/29/24 14:45 Acetaminophen 650 mg Q6HP PRN PO 09/29/24 14:45 09/30/24 23:45 650 MG Laboratory Results Laboratory Tests 09/30/24 11:00 10/01/24 07:12 Chemistry Test 09/30/24 11:00 Albumin 4.0 g/dL (3.2-4.8) Calcium Level 9.2 mg/dL (8.7-10.4) Total Protein 6.3 g/dL (5.7-8.2) LFT Test 09/30/24 11:00 Alanine Aminotransferase (ALT) 23 U/L (7-40) Alkaline Phosphatase 57 U/L (46-116) Aspartate Amino Transferase (AST) 23 U/L (13-40) Total Bilirubin 0.7 mg/dL (0.2-1.0) Urinalysis Test 09/29/24 09:00 Urine Color Light-yellow (Yellow) Urine Clarity Clear (Clear) Urine pH 8.0 (5.0-9.0) Urine Specific [place] > 1.050 (1.001-1.035) Urine Protein 1+ (Negative) H Urine Ketones Negative (Negative) Urine Blood Negative /uL (Negative) Urine Nitrite Negative (Negative) Urine Bilirubin Negative (Negative) Urine Urobilinogen Normal mg/dL (Negative) Urine Leukocyte Esterase Negative /uL (Negative) Urine RBC 1 /hpf (0 - 4) Urine Microscopic WBC 1 /HPF (0-5) Urine Squamous Epithelial Cells Few /hpf (<5) Urine Bacteria None seen /hpf (None Seen) Urine Glucose Normal mg/dL (Normal) Assessment/Plan Assessment/Plan Intractable abdominal pain illus Right breast mass - f/u outpaint. Obesity - CLD - Continue bowel rest - limit opioids. - F/u with GI reccs. Plan discussed with: Patient My Orders Orders - KIERSTEN JACKSON MD Procedure Category Date Status Time Clostridium Difficile [place] 09/30/24 In Process Toxin 12:07 Date of Service: Oct 01, 2024 Billing Provider: KIERSTEN JACKSON MD Common Visit Codes: [id number] INP/OBS CARE(HIGH) KIERSTEN JACKSON MD Oct 01, 2024 10:49
--- NOTE | 2024-10-01 11:02 | DVHPNRES ---
Progress Note Date Seen: Oct 01, 2024 Resident Creating Document: FABIOLA ULLOA RESIDENT Medical Necessity Reason Pt with a Central, PICC or Fol: No Subjective Review of Systems H&P: 39-year-old female with PMH of rhabdomyosarcoma, which was diagnosed 17 years ago, treated with chemo and radiation, and SP colostomy bag, presented to ER with abdominal pain mostly in the upper abdomen, for three days Patient had nausea and vomiting. No hematemesis Patient now has watery stool, no melena or red blood in stool Colonoscopy more than 10 years ago unsure about results Past Medical History: Cancer (Rhabdomyosarcoma 17 years ago, treated with surgery, chemo, & radiation) Past Surgical History: Colostomy No new complaints. Advanced diet. Soft mechanical diet. Patient had watery stool in ileostomy bag. Objective vital signs Vital Sign Date Time Temp Pulse Resp B/P (MAP) Pulse Ox O2 Delivery O2 Flow Rate FiO2 10/01/24 09:00 98.2 90 17 110/58 (75) 99 98.2 10/01/24 08:00 Room Air* 0 21 Total Intake and Output 09/30/24 09/30/24 10/01/24 15:00 23:00 07:00 Intake Total 250 ml 400 ml Output Total 300 ml 1150 ml Balance -50 ml -750 ml medications Current Medications Medications Dose Ordered Sig/Oswaldo Route Start Time Stop Time Status Last Admin Dose Admin Acetaminophen/ Hydrocodone Bitart 1 tab Q4HP PRN PO 09/29/24 14:45 09/30/24 02:15 1 TAB Ondansetron HCl 4 mg Q4HP PRN IV 09/29/24 14:45 Docusate Sodium 100 mg BIDPRN PRN PO 09/29/24 14:45 Acetaminophen 650 mg Q6HP PRN PO 09/29/24 14:45 09/30/24 23:45 650 MG Examination General Appearance: Cooperative. Well developed. Well nourished. NAD Head Exam: Normal inspection Neck Exam: Normal inspection. Non-tender. Normal alignment Pulmonary/Respiratory: Chest non-tender. Clear bilateral breath sounds Cardiovascular/Chest: Regular rate and rhythm. No murmurs. No JVD. Peripheral Pulses: 2+ Radial (R). 2+ Radial (L). 2+ Pedal (R). 2+ Pedal (L) Abdominal Exam: Normal bowel sounds. Soft. Nontender. No hepatospenomegaly. No masses, presence of colostomy bag, bowel sounds present. Ankle Exam: Negative ankle edema Lower extremities: Negative lower extremity edema Neuro/Mental Status: A&O x4. Coherent Thoughts/Psych: Normal thought pattern. Appropriate mood and affect. Good judgement and insight Appearance: In no acute distress Skin Exam: Normal inspection. Normal color. Warm. Dry laboratory and microbiology Laboratory Tests 10/01/24 07:12 09/30/24 11:00 Test 09/30/24 11:00 Range/Units Serum Glucose 105 74-106 mg/dL Problem List/Assessment/Plan Problem List/Assessment/Plan Acute abdominal pain Ruled out small-bowel obstruction Ileus History of rhabdomyosarcoma, with colostomy bag Plan: Discussed with Dr. Weiner -Small-bowel series with Gastrografin: radiology report of small-bowel series pending however patient had bowel movement, ruled out SBO. -Advanced diet as toleration, start with mechanical soft diet -Conservative management for nausea and vomiting, no any acute GI intervention needed at this point. -We will continue to monitor the patient -Plan discussed with patient and RN Plan discussed with: Patient, Other (RN) My Orders My Orders Orders - FABIOLA ULLOA Procedure Category Date Status Time Mechanical Soft Diet DIET 10/01/24 Transmitted Lunch FABIOLA ULLOA Oct 01, 2024 11:02
--- NOTE | 2024-10-01 18:44 | DVH ---
Procedure: XY SMALL BOWEL SERIES-W GASTROGRA Exam Date: 09/30/2024 03:03 PM Reason for study/Clinical History: abd pain. possible ileus Comparison Study: None available at time of dictation. Findings: Dilated loops small bowel measuring up to 4.8 cm. Findings may reflect ileus versus small-bowel obstr uction IMPRESSION: Dilated loops small bowel measuring up to 4.8 cm. Findings may reflect ileus versus small-bowel obstr uction No contrast in colon END IMPRESSION:
[2024-10-02 01:00] VITALS: BP 107/70; PULSE 117; RESP 18; TEMP 98.1; O2SAT 100
[2024-10-02 05:00] VITALS: BP 103/69; PULSE 104; RESP 18; TEMP 98; O2SAT 99
[2024-10-02 09:00] VITALS: BP 98/60; PULSE 94; RESP 16; TEMP 97.7; O2SAT 94
--- NOTE | 2024-10-02 10:49 | DVHDS2 ---
Discharge Summary Date of Admission Sep 29, 2024 at 14:42 Date of Discharge: Oct 02, 2024 Admitting Diagnosis Illeus Partial SBO Labs/Diagnostic Data: Laboratory Results Test 10/01/24 07:12 09/30/24 11:00 09/30/24 05:50 09/29/24 09:00 White Blood Count 6.5 10^3/uL (4.4-10.8) Red Blood Count 5.03 10^6/uL (4.0-5.20) Hemoglobin 14.8 g/dL (12.2-16.2) Hematocrit 43.1 % (36.0-46.0) Mean Corpuscular Volume 85.6 fL (80.0-100.0) Mean Corpuscular Hemoglobin 29.4 pg (28.0-32.0) Mean Corpuscular Hemoglobin Concent 34.3 g/dL (32.0-36.0) Red Cell Distribution Width 15.1 % (11.8-14.3) Platelet Count 373 10^3/uL (140-450) Mean Platelet Volume 7.5 fL (6.9-10.8) Neutrophils (%) (Auto) 55.3 % (37.0-80.0) Lymphocytes (%) (Auto) 23.5 % (10.0-50.0) Monocytes (%) (Auto) 17.3 % (0.0-12.0) Eosinophils (%) (Auto) 3.7 % (0.0-7.0) Basophils (%) (Auto) 0.2 % (0.0-2.0) Neutrophils # (Auto) 3.6 10 ^3/uL (1.6-8.6) Lymphocytes # (Auto) 1.5 10 ^3/uL (0.4-5.4) Monocytes # (Auto) 1.1 10 ^3/uL (0-1.3) Eosinophils # (Auto) 0.2 10 ^3/uL (0-0.8) Basophils # (Auto) 0 10 ^3/uL (0-0.2) Nucleated Red Blood Cells 0.0 % Sodium Level 134 mmol/L (136-145) Potassium Level 4.3 mmol/L (3.5-5.1) Chloride Level 104 mmol/L (98-107) Carbon Dioxide Level 21 mmol/L (20-31) Anion Gap 9 (5-15) Blood Urea Nitrogen 7 mg/dL (9-23) Creatinine 1.05 mg/dL (0.550-1.02) Glomerular Filtration Rate Calc 70 mL/min (>90) BUN/Creatinine Ratio 6.7 (10.0-20.0) Serum Glucose 105 mg/dL (74-106) Lactic Acid Level 1.3 mmol/L (0.4-2.0) Calcium Level 9.2 mg/dL (8.7-10.4) Total Bilirubin 0.7 mg/dL (0.2-1.0) Aspartate Amino Transferase (AST) 23 U/L (13-40) Alanine Aminotransferase (ALT) 23 U/L (7-40) Alkaline Phosphatase 57 U/L (46-116) Total Protein 6.3 g/dL (5.7-8.2) Albumin 4.0 g/dL (3.2-4.8) B-Type Natriuretic Peptide 18.58 pg/mL (0-100) Urine Color Light-yellow (Yellow) Urine Clarity Clear (Clear) Urine pH 8.0 (5.0-9.0) Urine Specific [place] > 1.050 (1.001-1.035) Urine Protein 1+ (Negative) Urine Ketones Negative (Negative) Urine Blood Negative /uL (Negative) Urine Nitrite Negative (Negative) Urine Bilirubin Negative (Negative) Urine Urobilinogen Normal mg/dL (Negative) Urine Leukocyte Esterase Negative /uL (Negative) Urine RBC 1 /hpf (0 - 4) Urine Microscopic WBC 1 /HPF (0-5) Urine Squamous Epithelial Cells Few /hpf (<5) Urine Bacteria None seen /hpf (None Seen) Urine Glucose Normal mg/dL (Normal) Other Laboratory Tests 10/01/24 07:12 09/30/24 11:00 Brief Hx & Hospital Course: HPI On admission History of Present Illness Mini Javier is a 39-year-old female with past medical history of rhabdomyosarcoma 17 years ago, she was treated with chemotherapy, radiation, and bowel surgery with colostomy. She came in today for complaints of abdominal pain, nausea, and vomiting. Patient states her symptoms began yesterday, she last vomited about 0200 this morning. States her abdomen is firm, the pain is right and left upper quadrant and that she has not had the normal about of stool output today. Heme/Onc: Cancer (Rhabdomyosarcoma 17 years ago, treated with surgery, chemo, & radiation) Exam: CT CT AB PEL WITH IV CON ONLY FINDINGS: The liver, gallbladder, pancreas, kidneys, adrenal glands, and spleen appear within normal limits. There is no evidence of abdominal lymphadenopathy. There is no free fluid or free air. The stomach grossly appears unremarkable. There are large bowel postsurgical changes with left lower quadrant colostomy. There has likely been resection of the distal colon. There is presacral irregular soft tissue thickening which May relate to postsurgical changes. The remaining large bowel loops appear within normal limits filled with stool and air. There are mildly prominent fluid- filled small bowel loops in the lower abdomen measuring up to 2.7 cm in diameter. The abdominal aorta and IVC appear within normal limits. The bladder appears within normal limits the degree of distention. There is likely large calcified leiomyoma in the uterus. There is no evidence of pelvic lymphadenopathy. There is no significant free fluid collection. Lung bases are clear. There is no acute osseous abnormality. IMPRESSION: 1. There are large bowel postsurgical changes with left lower quadrant colostomy. There is likely been resection of the distal colon. There is presacral irregular soft tissue thickening which May relate to postsurgical changes. Clinical correlation and comparison with any available prior CT studies is recommended. 2. There are mildly prominent fluid-filled small bowel loops in the lower abdomen. Small-bowel ileus not excluded. 3. Likely large calcified leiomyoma in the uterus. Patient was placed on CLD, Had a small bowel follow through performed. no SBO detected. Passed BM in colostomy bad. advised of need for care of colosotomy. Follow up with PCP in 2-3 days. Condition at Discharge: Stable Final Diagnosis/Problems List ILLEUS Discharge Disposition: Home with Health Services Discharge Instruct/Medications Diet: Regular Activity: No Restrictions, As Tolerated Follow Up/Referral: FU with PCP in 2-3 days. Medications: No new medications Discharge Statement: "Patient was advised to return to the ER or call 911 if any headaches, dizziness, shortness of breath, chest pain, abdominal pain, bleeding, fevers, or worsening of medical condition. Patient was counseled about treatment plan, medications, possible side effects, patientverbalized understanding. All questions were answered to the best of my ability. This discharge took greater then 30 minutes in planning, reviewing documentation, counseling the patient, and discussing with other team members." ASSESSMENT ASSESSMENT Assessment ILLEUS Abdominal pain Date of Service: Oct 02, 2024 Billing Provider: KIERSTEN JACKSON MD Common Visit Codes: [id number] DISCH DAY >30min KIERSTEN JACKSON MD Oct 02, 2024 10:49
[2024-10-02] MEDS: ONDANSETRON HCL 4 MG/2 ML VIAL IV PRN (11:21)
[2024-10-02 12:23] VITALS: TEMP 36.5
[2024-10-02 13:00] VITALS: BP 106/64; PULSE 106; RESP 19; TEMP 97.7; O2SAT 96
== END 2024-10-02 14:40 | disposition home or self-care (01) | DRG 389 ==
LOC: ER 08:56 → EDBD 08:56 → OVERFLOW 14:42 → CENTRAL 22:46
PROVIDERS: ADMIT Nurse Practitioner Family; ATTEND Family Medicine
DX: K56.7 Ileus, unspecified (principal); Z68.41 Body mass index [BMI] 40.0-44.9, adult; E66.9 Obesity, unspecified; N63.10 Unspecified lump in the right breast, unspecified quadrant; F17.210 Nicotine dependence, cigarettes, uncomplicated; Z93.3 Colostomy status; Z90.710 Acquired absence of both cervix and uterus; Z92.21 Personal history of antineoplastic chemotherapy; Z79.899 Other long term (current) drug therapy
CPT/HCPCS: 36415; 71250; 74018; 74177; 74250; 80053; 81001; 83605; 83880; 85025; 87493; 96361; 96374; 96375; G0378; J2405

== ENCOUNTER 2024-12-02 09:54 | Inpatient (IN) | payer MEDICARE ==
[~2024-12-02] VITALS: Ht 160 cm; Wt 123.0 kg
[2024-12-02] MEDS: CEFEPIME 2GM/50ML NS 50 ML IV SCH (01:20)
[2024-12-02] MEDS: HYDROcodone-ACET 10/325MG TAB PO ONE (11:06)
[2024-12-02 11:30] LABS: Basophils # (auto) 0 10 ^3/uL (0-0.2); Basophils % (auto) 0.6 % (0.0-2.0); Eosinophils # (auto) 0.1 10 ^3/uL (0-0.8); Hematocrit 38.5 % (36.0-46.0); Hemoglobin 12.6 g/dL (12.2-16.2); Lymphocytes # (auto) 1.8 10 ^3/uL (0.4-5.4); Lymphocytes % (auto) 22.8 % (10.0-50.0); Mean Corpuscular Hemoglobin 28.5 pg (28.0-32.0); Mean Corpuscular Hgb Conc. 32.7 g/dL (32.0-36.0); Mean Corpuscular Volume 87.1 fL (80.0-100.0); Monocytes # (auto) 0.5 10 ^3/uL (0-1.3); Monocytes % (auto) 6.2 % (0.0-12.0); Neutrophils # (auto) 5.5 10 ^3/uL (1.6-8.6); Neutrophils % (auto) 69.4 % (37.0-80.0); Platelet Count (auto) 358 10^3/uL (140-450); Red Blood Cells 4.42 10^6/uL (4.0-5.20)
[2024-12-02 11:32] LABS: Chloride 106 mmol/L (98-107); Potassium 3.9 mmol/L (3.5-5.1); Sodium 139 mmol/L (136-145)
[2024-12-02 11:33] LABS: Anion Gap 6 (5-15); Calcium 9.8 mg/dL (8.7-10.4); Carbon Dioxide 27 mmol/L (20-31)
[2024-12-02 11:38] LABS: BUN/Creatinine Ratio 12.6 (10.0-20.0); Blood Urea Nitrogen 12 mg/dL (9-23); Glucose 96 mg/dL (74-106)
--- NOTE | 2024-12-02 11:50 | DVH ---
US OF THE RIGHT BREAST INDICATION: Erythema and a palpable mass located eight 9:00 a.m. region. TECHNIQUE: Targeted right breast ultrasound was performed. COMPARISON: Prior exam dated: Outside study 11/26/2024 FINDINGS: Large right breast mass at 9 o'clock is visualized biopsy marker clip. Abnormal enlarged lymph nodes in the right axilla with thickened cortex which have previously reported to be biopsied. IMPRESSION: Highly suspicious large right breast mass and suspicious abnormal lymph nodes in the right axilla wit h recent history of biopsy. No definite evidence of fluid collection. Recommend further evaluation w ith pathology. ACR Bi Rads Category:Category 0-"INCOMPLETE" (Needs Additional Imaging Evaluation))
--- NOTE | 2024-12-02 12:10 | ED.PDOC ---
AD OPERATIONS COORDINATOR HPI Comments This is a pleasant 39-year-old female who is currently receiving patient follow up for her right-sided breast pain. Reports she underwent a biopsy on but has been complaining of worsening localized breast pain at approximately 7-9 o'clock region pain is described as constant and is unable to get adequate rel ief with [id number] Tylenol and Motrin. Pending biopsy results at this time. Denies fevers chills nausea vomiting diarrhea. Denies any drainage from the breast. Chief Complaint: Breast pain Time Seen by MD: 10:05 Reviewed Notes: Nurses Notes, Medications, Allergies Allergies: Coded Allergies: NO KNOWN ALLERGIES (Unverified , 02/02/18) Home Meds Active Scripts Oxycodone HCl (Oxycodone Hydrochloride) 10 Mg Tab, 10 MG PO QID PRN, #40 TAB Prov:FRANKIE OVALLE MD 12/04/24 Cephalexin Monohydrate (Cephalexin) 500 Mg Cap, 1 CAP PO QID, #40 CAP Prov:FRANKIE OVALLE MD 12/04/24 Information Source: Patient Past Medical History PAST MEDICAL HISTORY: Cancer Surgical History: Hysterectomy SPRAYER AUTOMATIC SPRAY MACHINE History: No Pertinent SPRAYER AUTOMATIC SPRAY MACHINE History Family History Family History: Reviewed,noncontributory to illness, Unknown Social History Smoker: Cigarettes, Less Than 1 Pack/Day Alcohol: Denies ETOH Use Drugs: Denies Drug Use Lives In: Home All Other Systems: Reviewed and Negative (Per HPI) Physical Exam General Appearance: No Apparent Distress, Normal HEENT: Normal ENT Inspection, Pharynx Normal, TMs Normal Neck: Full Range of Motion, Non-Tender, Normal, Normal Inspection Respiratory: Chest Non-Tender, Lungs Clear, No Accessory Muscle Use, No Respiratory Distress, Normal Breath Sounds Cardiovascular: No Edema, No JVD, No Murmur, No Gallop, Normal Peripheral Pulses, Regular Rate/Rhythm Breast Exam: (R) Mass, (R) Tenderness, None (Erythema to 7-9 o'clock region. no fluctuance) Gastrointestinal: No Organomegaly, Non Tender, No Pulsatile Mass, Normal Bowel Sounds, Soft Genitalia: Deferred Pelvic: Deferred Rectal: Deferred Extremities: No calf tenderness, Normal capillary refill, Normal inspection, Normal range of motion, Non-tender, No pedal edema Musculoskeletal : Apperance: Normal Neurologic: Alert, smog technician II-XII nml as Tested, No Motor Deficits, Normal Affect, Normal Mood, No Sensory Deficits Cerebellar Function: Normal Reflexes: Normal Skin: Dry, Normal Color, Warm Lymphatic: No Adenopathy Was a procedure done? Was a procedure done?: No Differential Diagnosis (SPRAYER AUTOMATIC SPRAY MACHINE) Vaginal Bleeding: Other X-Ray, Labs, Meds, VS Vital Signs Date Time Temp Pulse Resp B/P (MAP) Pulse Ox O2 Delivery O2 Flow Rate FiO2 12/02/24 10:42 92 20 99 Room Air 12/02/24 10:42 98.1 92 20 142/95 (111) 99 98.1 12/02/24 10:05 98.1 92 20 142/95 (111) 99 98.1 Lab Test 12/02/24 11:04 Range/Units White Blood Count 8.0 4.4-10.8 10^3/uL Red Blood Count 4.42 4.0-5.20 10^6/uL Hemoglobin 12.6 12.2-16.2 g/dL Hematocrit 38.5 36.0-46.0 % Mean Corpuscular Volume 87.1 80.0-100.0 fL Mean Corpuscular Hemoglobin 28.5 28.0-32.0 pg Mean Corpuscular Hemoglobin Concent 32.7 32.0-36.0 g/dL Red Cell Distribution Width 16.0 H 11.8-14.3 % Platelet Count 358 140-450 10^3/uL Mean Platelet Volume 7.3 6.9-10.8 fL Neutrophils (%) (Auto) 69.4 37.0-80.0 % Lymphocytes (%) (Auto) 22.8 10.0-50.0 % Monocytes (%) (Auto) 6.2 0.0-12.0 % Eosinophils (%) (Auto) 1.0 0.0-7.0 % Basophils (%) (Auto) 0.6 0.0-2.0 % Neutrophils # (Auto) 5.5 1.6-8.6 10 ^3/uL Lymphocytes # (Auto) 1.8 0.4-5.4 10 ^3/uL Monocytes # (Auto) 0.5 0-1.3 10 ^3/uL Eosinophils # (Auto) 0.1 0-0.8 10 ^3/uL Basophils # (Auto) 0 0-0.2 10 ^3/uL Nucleated Red Blood Cells 0.0 % Sodium Level 139 136-145 mmol/L Potassium Level 3.9 3.5-5.1 mmol/L Chloride Level 106 98-107 mmol/L Carbon Dioxide Level 27 20-31 mmol/L Anion Gap 6 5-15 Blood Urea Nitrogen 12 9-23 mg/dL Creatinine 0.95 0.550-1.02 mg/dL Glomerular Filtration Rate Calc 79 >90 mL/min BUN/Creatinine Ratio 12.6 10.0-20.0 Serum Glucose 96 74-106 mg/dL Calcium Level 9.8 8.7-10.4 mg/dL X-Ray, Labs, Meds, VS Comment The patient presents with symptoms of breast pain Patients work up was remarkable for: Highly suspicious large right breast mass and suspicious abnormal lymph nodes in the right axilla with recent history of biopsy. No definite evidence of fluid collection. Recommend further evaluation with pathology. ACR Bi Rads Category:Category 0-"INCOMPLETE" (Needs Additional Imaging Evaluation)) The patient's workup reveals that the patient needs further evaluation and/or treatment for the above medical conditions. Patient verbalized understanding of the above and is awaiting further evaluation by the admitting service. Time of 1ST Reevaluation: 12:07 Reevaluation 1ST: Improved Patient Education/Counseling: Diagnosis, Treatment Family Education/Counseling: Diagnosis, Treatment Departure 1 Departure Time of Disposition: 12:09 Impression: Primary Impression: Breast mass, right Qualified Codes: N63.13 - Unspecified lump in the right breast, lower outer quadrant Additional Impression: Breast pain, right Disposition: 09 ADMITTED INPATIENT Condition: Serious e-Prescriptions Oxycodone HCl (Oxycodone Hydrochloride) 10 Mg Tab 10 MG PO QID PRN, #40 TAB Prov: FRANKIE OVALLE MD 12/04/24 Cephalexin Monohydrate (Cephalexin) 500 Mg Cap 1 CAP PO QID, #40 CAP Prov: FRANKIE OVALLE MD 12/04/24 Critical Care Note Critical Care Time?: No Stability Stability form required: No Heart Score Heart Score: Heart Score Response (Comments) Value History N/A 0 EKG N/A 0 Age N/A 0 Risk Factors N/A 0 Troponin N/A 0 Total 0 SMOOTH RICKS RECEP Dec 02, 2024 12:10
[2024-12-02] MEDS ORDERED: DOCUSATE SOD 100 MG CAP PO PRN (13:15)
[2024-12-02] MEDS ORDERED: ACETAMINOPHEN 325 MG TAB PO PRN (13:15)
[2024-12-02] MEDS ORDERED: VANCOMYCIN PER PHARMACY 0 MG IV SCH (13:15)
--- NOTE | 2024-12-02 13:24 | DVHHP2 ---
History of Present Illness Reason for Visit: right breast pain, lump History of Present Illness Mini Javier is a 39-year-old female with past medical history of rhabdomyosarcoma, she was treated with chemotherapy, radiation, and bowel surgery with colostomy. She came in today for complaints of right breast pain and mass. Patient found a mass on her right breast a couple months ago. She has been following outpatient. She had a biopsy completed on 11/26/2024. She was called today and notified that her results are in, but she needs an appointment to get them from the provider. Patient came in today due to the pain, redness, and mass growing significantly. The mass has begun to protrude from her breast, and is now visible. She states it started out small and has grown significantly in a short period of time. Heme/Onc: Cancer (Rhabdomyosarcoma, treated with surgery, chemo, & radiation) Past Surgical History: Hysterectomy (partial), Other (bowel surgery with colostomy) Smoke: 1 pack per day ALCOHOL: rare Drugs: None Lives: with Family Domestic Violence: Neg Review of Systems Constitutional: No: Fever, Chills, Sweats, Weakness, Malaise, Other Eyes: No: Pain, Vision change, Conjunctivae inflammation, Eyelid inflammation, Other, Redness ENT: No: Ear pain, Ear discharge, Nose pain, Nose discharge, Nose congestion, Mouth pain, Mouth swelling, Throat pain, Throat swelling, Other Respiratory: No: Cough, Dry, Shortness of breath, SOB with excertion, Wheezing, Hemoptysis, Pleuritic Pain, Sputum, Wheezing, Other Cardiovascular: No: Chest Pain, Palpitations, Orthopnea, Paroxysmal Noc. Dyspnea, Edema, Lt Headedness, Other Gastrointestinal: No: Nausea, Vomiting, Abdominal Pain, Diarrhea, Constipation, Melena, Hematochezia, Other Genitourinary: No Dysuria, No Frequency, No Incontinence, No Hematuria, No Retention, No Other Musculoskeletal: No: other, neck pain, shoulder pain, arm pain, back pain, hand pain, leg pain, foot pain Skin: Other (right breast swollen, red, mass, painful); No: Rash, Lesions, Jaundice, Bruising Neurological: No: Weakness, Numbness, Incoordination, Change in speech, Confusion, Seizures, Other Allergies: Coded Allergies: NO KNOWN ALLERGIES (Unverified , 02/02/18) Exam Vital Signs Vital Signs Date Time Temp Pulse Resp B/P (MAP) Pulse Ox O2 Delivery O2 Flow Rate FiO2 12/02/24 10:42 92 20 99 Room Air 12/02/24 10:42 98.1 142/95 (111) 98.1 General Appearance: Alert, Oriented X3, Cooperative, moderate distress HEENT: Atraumatic, PERRLA, Mucous membr. moist/pink Respiratory: Clear to auscultation, Normal air movement Cardiovascular: Regular rate, Normal S1, Normal S2, No murmurs Abdominal: Normal bowel sounds, Soft, No tenderness, No hepatospenomegaly, Other (colostomy) Extremities: No clubbing, No cyanosis, No edema, Normal pulses Skin: No rashes, No breakdown, No significant lesion (right breast swollen, red, mass, painful) Neuro: Normal gait, Normal speech, Strength at 5/5 X4 ext, Normal tone Psych/Mental Status: Mental status NL, Mood NL Labs/Xrays Labs Test 12/02/24 11:04 Range/Units White Blood Count 8.0 4.4-10.8 10^3/uL Red Blood Count 4.42 4.0-5.20 10^6/uL Hemoglobin 12.6 12.2-16.2 g/dL Hematocrit 38.5 36.0-46.0 % Mean Corpuscular Volume 87.1 80.0-100.0 fL Mean Corpuscular Hemoglobin 28.5 28.0-32.0 pg Mean Corpuscular Hemoglobin Concent 32.7 32.0-36.0 g/dL Red Cell Distribution Width 16.0 H 11.8-14.3 % Platelet Count 358 140-450 10^3/uL Mean Platelet Volume 7.3 6.9-10.8 fL Neutrophils (%) (Auto) 69.4 37.0-80.0 % Lymphocytes (%) (Auto) 22.8 10.0-50.0 % Monocytes (%) (Auto) 6.2 0.0-12.0 % Eosinophils (%) (Auto) 1.0 0.0-7.0 % Basophils (%) (Auto) 0.6 0.0-2.0 % Neutrophils # (Auto) 5.5 1.6-8.6 10 ^3/uL Lymphocytes # (Auto) 1.8 0.4-5.4 10 ^3/uL Monocytes # (Auto) 0.5 0-1.3 10 ^3/uL Eosinophils # (Auto) 0.1 0-0.8 10 ^3/uL Basophils # (Auto) 0 0-0.2 10 ^3/uL Nucleated Red Blood Cells 0.0 % Sodium Level 139 136-145 mmol/L Potassium Level 3.9 3.5-5.1 mmol/L Chloride Level 106 98-107 mmol/L Carbon Dioxide Level 27 20-31 mmol/L Anion Gap 6 5-15 Blood Urea Nitrogen 12 9-23 mg/dL Creatinine 0.95 0.550-1.02 mg/dL Glomerular Filtration Rate Calc 79 >90 mL/min BUN/Creatinine Ratio 12.6 10.0-20.0 Serum Glucose 96 74-106 mg/dL Calcium Level 9.8 8.7-10.4 mg/dL US OF THE RIGHT BREAST FINDINGS: Large right breast mass at 9 o'clock is visualized biopsy marker clip. Abnormal enlarged lymph nodes in the right axilla with thickened cortex which have previously reported to be biopsied. IMPRESSION: Highly suspicious large right breast mass and suspicious abnormal lymph nodes in the right axilla with recent history of biopsy. No definite evidence of fluid collection. Recommend further evaluation with pathology. Assessment/Plan Assessment/Plan Assessment: Breast mass, right, Breast pain, right, Plan: Admit to Med-Surg, IV antibiotics, IV hydration, Pain management, Plan discussed with: Patient My Orders Orders - NIKOLAI GALAN BEAM DYER RECESSED VAT Procedure Category Date Status Time Admit ADMIT 12/02/24 Verified 13:08 Code Status CODE 12/02/24 Verified 13:08 Hydrocodone-Acet PHA 12/02/24 Verified 5/325mg Tab ([place] 13:15 Ondansetron Hcl PHA 12/02/24 Verified (Zofran) 13:15 Docusate Sodium PHA 12/02/24 Verified Capsule (Colace 13:15 Complete Blood Count LAB 12/03/24 Verified 04:00 Comprehensive LAB 12/03/24 Verified Metabolic Panel 04:00 Condition: Serious CHARLETTE 12/02/24 Verified 13:08 Acetaminophen Tablet PHA 12/02/24 Verified (Tylenol Tablet) 13:15 Morphine Sulfate PHA 12/02/24 Verified Injection 13:15 Vancomycin Per PHA 12/02/24 Verified Pharmacy 13:15 Vancomycin PHA 12/02/24 Verified 13:15 Cefepime 2gm Extended PHA 12/02/24 Verified Infusion 22:00 NS PHA 12/02/24 Verified 13:15 Regular Diet DIET 12/02/24 Verified Lunch Date of Service: Dec 02, 2024 Billing Provider: NIKOLAI GALAN Common Visit Codes: [id number] INP/OBS CARE (MOD) NIKOLAI GALAN Dec 02, 2024 13:24
[2024-12-02] MEDS: VANCOMYCIN 1GM/200ML PM 200 ML IV ONE (15:00)
[2024-12-02] MEDS: SODIUM CHLORIDE 0.9% 1,000 ML IV ONE (15:14)
[2024-12-02] MEDS: ONDANSETRON HCL 4 MG/2 ML VIAL IV PRN (15:43)
[2024-12-02] MEDS: MORPHINE SULFATE INJ 2 MG/ml SYRG IV PRN (15:50)
[2024-12-02 16:07] VITALS: PULSE 109; RESP 18; O2SAT 98
[2024-12-02 18:52] VITALS: BP_SYST 121; BP_SYST 130; BP_DIAS 65; BP_DIAS 79; PULSE 70; PULSE 82; RESP 18; RESP 19; TEMP 97.5; TEMP 98.4; O2SAT 98; O2SAT 99
[2024-12-02 21:00] VITALS: BP_SYST 124; BP_SYST 130; BP_DIAS 63; BP_DIAS 79; PULSE 70; PULSE 72; RESP 18; TEMP 97.3; TEMP 97.5; O2SAT 96; O2SAT 99
[2024-12-02] MEDS: VANCOMYCIN 1.75GM/350ML 350 ML IV SCH (21:20)
[2024-12-02 21:56] VITALS: BP 124/63; PULSE 72; RESP 18; TEMP 97.3; O2SAT 96
[2024-12-03 05:00] VITALS: BP 116/70; PULSE 97; RESP 19; TEMP 97.3; O2SAT 93
[2024-12-03] MEDS ORDERED: VANCOMYCIN 1.75GM/350ML 350 ML IV SCH (06:00)
[2024-12-03 06:48] LABS: Basophils # (auto) 0 10 ^3/uL (0-0.2); Basophils % (auto) 0.3 % (0.0-2.0); Eosinophils # (auto) 0.1 10 ^3/uL (0-0.8); Eosinophils % (auto) 1.5 % (0.0-7.0); Hematocrit 37.6 % (36.0-46.0); Hemoglobin 12.7 g/dL (12.2-16.2); Lymphocytes # (auto) 1.7 10 ^3/uL (0.4-5.4); Lymphocytes % (auto) 25.1 % (10.0-50.0); Mean Corpuscular Hemoglobin 29.5 pg (28.0-32.0); Mean Corpuscular Hgb Conc. 33.7 g/dL (32.0-36.0); Mean Corpuscular Volume 87.6 fL (80.0-100.0); Monocytes # (auto) 0.5 10 ^3/uL (0-1.3); Monocytes % (auto) 8.1 % (0.0-12.0); Neutrophils # (auto) 4.4 10 ^3/uL (1.6-8.6); Nucleated Red Blood Cells % 0.1 %; Platelet Count (auto) 346 10^3/uL (140-450); Red Blood Cells 4.29 10^6/uL (4.0-5.20); White Blood Cell 6.8 10^3/uL (4.4-10.8)
[2024-12-03 06:50] LABS: Alanine Aminotransferase 12 U/L (7-40); Albumin 3.8 g/dL (3.2-4.8); Alkaline Phosphatase 76 U/L (46-116); Anion Gap 5 (5-15); Aspartate Aminotransferase 10 U/L (13-40); Bilirubin, Total 0.2 mg/dL (0.2-1.0); Blood Urea Nitrogen 12 mg/dL (9-23); Calcium 9.1 mg/dL (8.7-10.4); Carbon Dioxide 23 mmol/L (20-31); Chloride 109 mmol/L (98-107); Glucose 114 mg/dL (74-106); Potassium 4.1 mmol/L (3.5-5.1); Sodium 137 mmol/L (136-145); Total Protein 6.4 g/dL (5.7-8.2)
[2024-12-03 08:00] VITALS: PULSE 62; RESP 19; O2SAT 100
[2024-12-03 08:43] VITALS: BP 106/60; PULSE 62; RESP 19; TEMP 98.2; O2SAT 100
[2024-12-03] MEDS: VANCOMYCIN 1.75GM/350ML 350 ML IV SCH (09:31)
[2024-12-03] MEDS: CEFEPIME 2GM/50ML NS 50 ML IV SCH (09:43)
--- NOTE | 2024-12-03 12:36 | DVHPN2 ---
Reviewed: Care Plan, H&P, Labs, Medications, Previous Orders, Radiology Changes from previous H/P or p: No Changes Eyes: No Pain, No Vision change, No Conjunctivae inflammation, No Eyelid inflammation, No Other, No Redness ENT: No Ear pain, No Ear discharge, No Nose pain, No Nose discharge, No Nose congestion, No Mouth pain, No Mouth swelling, No Throat pain, No Throat swelling, No Other Cardiovascular: No Chest Pain, No Palpitations, No Orthopnea, No Paroxysmal Noc. Dyspnea, No Edema, No Lt Headedness, No Other Respiratory: No Cough, No Dry, No Shortness of breath, No SOB with excertion, No Wheezing, No Hemoptysis, No Pleuritic Pain, No Sputum, No Other Gastrointestinal: No Nausea, No Vomiting, No Abdominal Pain, No Diarrhea, No Constipation, No Melena, No Hematochezia, No Other Genitourinary: No Dysuria, No Frequency, No Incontinence, No Hematuria, No Retention, No Other Musculoskeletal: No other, No neck pain, No shoulder pain, No arm pain, No back pain, No hand pain, No leg pain, No foot pain Skin: No Rash, No Lesions, No Jaundice, No Bruising; Other (right breast swollen, red, mass, painful) Objective Vitals Vital Signs Date Time Temp Pulse Resp B/P (MAP) Pulse Ox O2 Delivery O2 Flow Rate FiO2 12/03/24 08:43 98.2 62 19 106/60 (75) 100 98.2 12/03/24 08:00 Room Air* 0 21 Intake/Output Intake and Output 12/03/24 07:00 Intake Total 550 ml Balance 550 ml Intake IV Total 550 ml # Voids 1 Medications Current Medications Medications Dose Ordered Sig/Oswaldo Route Start Time Stop Time Status Last Admin Dose Admin Acetaminophen/ Hydrocodone Bitart 1 tab Q4HP PRN PO 12/02/24 13:15 Ondansetron HCl 4 mg Q4HP PRN IV 12/02/24 13:15 12/02/24 15:43 4 MG Docusate Sodium 100 mg BIDPRN PRN PO 12/02/24 13:15 Acetaminophen 650 mg Q6HP PRN PO 12/02/24 13:15 Morphine Sulfate 2 mg Q4HPRN PRN IV 12/02/24 13:15 12/02/24 20:26 2 MG Vancomycin HCl 0 ml @ 0 mls/hr UD IV 12/02/24 13:15 Cefepime HCl 50 ml @ 12.5 mls/hr Q8H IV 12/03/24 09:00 12/03/24 09:43 12.5 MLS/HR Vancomycin HCl 350 ml @ 233.333 mls/hr Q12H IV 12/03/24 09:00 12/03/24 09:31 233.333 MLS/HR Laboratory Results Laboratory Tests 12/03/24 05:28 Chemistry Test 12/03/24 05:28 Albumin 3.8 g/dL (3.2-4.8) Calcium Level 9.1 mg/dL (8.7-10.4) Total Protein 6.4 g/dL (5.7-8.2) LFT Test 12/03/24 05:28 Alanine Aminotransferase (ALT) 12 U/L (7-40) Alkaline Phosphatase 76 U/L (46-116) Aspartate Amino Transferase (AST) 10 U/L (13-40) L Total Bilirubin 0.2 mg/dL (0.2-1.0) Labs and/or images reviewed: Labs reviewed by me, Image(s) reviewed by me Assessment/Plan Assessment/Plan Right breast mass possible malignancy, patient had biopsy on 11/26/2024 at [facility], will get the biopsy result Possible right breast infection: Cefepime History of rhabdomyosarcoma status post chemotherapy radiation therapy, colectomy, presence of colostomy bag left lower quadrant RN Kayla bed side Plan discussed with: Patient My Orders Orders - FRANKIE OVALLE MD Procedure Category Date Status Time * Surgical Consult CONS 12/03/24 Transmitted Date of Service: Dec 03, 2024 Billing Provider: FRANKIE OVALLE MD Common Visit Codes: [id number] INP/OBS CARE(HIGH) FRANKIE OVALLE MD Dec 03, 2024 12:36
[2024-12-03 12:55] VITALS: BP 130/61; PULSE 80; RESP 18; TEMP 98.3; O2SAT 96
--- NOTE | 2024-12-03 14:39 | DVHINCON2 ---
Date of service: Dec 03, 2024 Reason for Consultation right breast mass History of Present Illness History Source: Patient, MD Notes Exam Limitations: No limitations HPI 39 year old female presented to the ER with medical history of rhabdomyosarcoma and was treated with surgery , chemotherapy and radiation. patient states a couple months ago she notice a lump on her right breast and was seen and a biopsy was sent out to pathology. Patient presented to the hospital due to pain, redness and swelling of the right breast. Pathology report has been requested. Home Meds No Active Prescriptions or Reported Meds Past Medical History Cardiac: No pertinent Hx Pulmonary: No pertinent Hx Central Nervous System: No pertinent Hx GI: Other Hemotology/Oncology: Other (Rhabdomyosarcoma, treated with surgery, chemo, & radiation) Hepatobiliary: No pertinent Hx Psychiatric: No pertinent Hx Musculoskeletal: No pertinent Hx Rheumotologic: No pertinent Hx Infectious Disease: No peritnent Hx ENT: No pertinent Hx Renal/: No pertinent Hx Endocrine: No pertinent Hx Dermatology: No pertinent Hx Past Surgical History: Hysterctomy Others bowel surgery, colostomy Family History: No pertinent Hx Patient Family History: FHx: breast cancer G8 MOTHER, FHx: prostate cancer G8 FATHER, Smoker: 1 pack per day Alocohol: Rare Drugs: None Lives with: With family Review of Systems Constitutional: No symptom reported Ears, Nose, & Throat: No symptom reported Eyes: No symptom reported Pulmonary/Respiratory: No symptom reported Cardiovascular: No symptom reported Gastrointestinal: No symptom reported Genitourinary: No symptom reported Musculoskeletal: No symptom reported Skin: Other (right breast pain, swelling ) Psychiatric: No symptom reported Endocrine: No symptom reported Hemotologic/Lymphatic: No symptom reported H&P Exam Vital Signs Vital Signs Date Time Temp Pulse Resp B/P (MAP) Pulse Ox O2 Delivery O2 Flow Rate FiO2 12/03/24 12:55 98.3 80 18 130/61 (84) 96 98.3 12/03/24 08:00 Room Air* 0 21 General Appeara: Well developed, Well nourished, Normal Appearance Head Exam: Normal inspection Neck Exam: Normal inspection, Non-tender Mouth: Normal Inspection Pulmonary/Respiratory: Normal inspection, Normal breath sounds Cardiovascular/Chest: Normal inspection HALL WORKER Exam: Normal hearing, Normal speech, PERRL Appearance: Appropriate appearance Eye contact/ Speech: Cooperative, Good eye contact, Normal speech Thoughts/Psych: Normal thought pattern Skin Exam: Other (right breast erythema ) Labs/Xrays Labs Test 12/03/24 05:28 Range/Units White Blood Count 6.8 4.4-10.8 10^3/uL Red Blood Count 4.29 4.0-5.20 10^6/uL Hemoglobin 12.7 12.2-16.2 g/dL Hematocrit 37.6 36.0-46.0 % Mean Corpuscular Volume 87.6 80.0-100.0 fL Mean Corpuscular Hemoglobin 29.5 28.0-32.0 pg Mean Corpuscular Hemoglobin Concent 33.7 32.0-36.0 g/dL Red Cell Distribution Width 16.0 H 11.8-14.3 % Platelet Count 346 140-450 10^3/uL Mean Platelet Volume 7.4 6.9-10.8 fL Neutrophils (%) (Auto) 65.0 37.0-80.0 % Lymphocytes (%) (Auto) 25.1 10.0-50.0 % Monocytes (%) (Auto) 8.1 0.0-12.0 % Eosinophils (%) (Auto) 1.5 0.0-7.0 % Basophils (%) (Auto) 0.3 0.0-2.0 % Neutrophils # (Auto) 4.4 1.6-8.6 10 ^3/uL Lymphocytes # (Auto) 1.7 0.4-5.4 10 ^3/uL Monocytes # (Auto) 0.5 0-1.3 10 ^3/uL Eosinophils # (Auto) 0.1 0-0.8 10 ^3/uL Basophils # (Auto) 0 0-0.2 10 ^3/uL Nucleated Red Blood Cells 0.1 % Sodium Level 137 136-145 mmol/L Potassium Level 4.1 3.5-5.1 mmol/L Chloride Level 109 H 98-107 mmol/L Carbon Dioxide Level 23 20-31 mmol/L Anion Gap 5 5-15 Blood Urea Nitrogen 12 9-23 mg/dL Creatinine 0.92 0.550-1.02 mg/dL Glomerular Filtration Rate Calc 82 >90 mL/min BUN/Creatinine Ratio 13.0 10.0-20.0 Serum Glucose 114 H 74-106 mg/dL Calcium Level 9.1 8.7-10.4 mg/dL Total Bilirubin 0.2 0.2-1.0 mg/dL Aspartate Amino Transferase (AST) 10 L 13-40 U/L Alanine Aminotransferase (ALT) 12 7-40 U/L Alkaline Phosphatase 76 46-116 U/L Total Protein 6.4 5.7-8.2 g/dL Albumin 3.8 3.2-4.8 g/dL Assessment/Plan Problem List: (1) Breast mass, right (2) Breast pain, right Plan right breast erythema , tender to touch Plan: right biopsy pathology report requested for review will revaluate tomorrow continue Iv antibiotics Plan discussed with: Patient, Other (Dr. Da Silva) Visit Coding Surgery Date of Service if different f: Dec 03, 2024 Billing Provider: CARRIE DA SILVA MD Surgery Visit Codes: [id number] - INP CONSULT <80 MIN ROBYN LEES NP Dec 03, 2024 14:39
[2024-12-03 17:00] VITALS: BP 126/64; PULSE 82; RESP 18; TEMP 98.2; O2SAT 97
[2024-12-03] MEDS: HYDROcodone-ACET 5/325MG TAB PO PRN (17:31)
[2024-12-03 21:00] VITALS: BP 114/70; PULSE 84; RESP 18; TEMP 98.3; O2SAT 95
[2024-12-04 05:00] VITALS: BP 115/77; PULSE 82; RESP 17; TEMP 98.3; O2SAT 96
[2024-12-04 08:00] VITALS: PULSE 93; RESP 17; O2SAT 94
[2024-12-04 09:00] VITALS: BP 114/76; PULSE 93; RESP 17; TEMP 98.1; O2SAT 94
[2024-12-04 09:49] VITALS: BP 113/88; PULSE 93; RESP 18
--- NOTE | 2024-12-04 10:34 | DVHPN2 ---
Reviewed: Care Plan, H&P, Labs, Medications, Previous Orders, Radiology Changes from previous H/P or p: No Changes Eyes: No Pain, No Vision change, No Conjunctivae inflammation, No Eyelid inflammation, No Other, No Redness ENT: No Ear pain, No Ear discharge, No Nose pain, No Nose discharge, No Nose congestion, No Mouth pain, No Mouth swelling, No Throat pain, No Throat swelling, No Other Cardiovascular: No Chest Pain, No Palpitations, No Orthopnea, No Paroxysmal Noc. Dyspnea, No Edema, No Lt Headedness, No Other Respiratory: No Cough, No Dry, No Shortness of breath, No SOB with excertion, No Wheezing, No Hemoptysis, No Pleuritic Pain, No Sputum, No Other Gastrointestinal: No Nausea, No Vomiting, No Abdominal Pain, No Diarrhea, No Constipation, No Melena, No Hematochezia, No Other Genitourinary: No Dysuria, No Frequency, No Incontinence, No Hematuria, No Retention, No Other Musculoskeletal: No other, No neck pain, No shoulder pain, No arm pain, No back pain, No hand pain, No leg pain, No foot pain Skin: No Rash, No Lesions, No Jaundice, No Bruising; Other (right breast swollen, red, mass, painful) Objective Vitals Vital Signs Date Time Temp Pulse Resp B/P (MAP) Pulse Ox O2 Delivery O2 Flow Rate FiO2 12/04/24 09:49 93 18 113/88 12/04/24 09:00 98.1 94 98.1 12/04/24 08:00 Room Air* 0 21 Intake/Output Intake and Output 12/04/24 07:00 Intake Total 2470.0 ml Output Total 360 ml Balance 2110.0 ml Intake Oral 2020 ml IV Total 450.0 ml Output Stool Total 360 ml # Voids 11 Medications Current Medications Medications Dose Ordered Sig/Oswaldo Route Start Time Stop Time Status Last Admin Dose Admin Acetaminophen/ Hydrocodone Bitart 1 tab Q4HP PRN PO 12/02/24 13:15 12/03/24 17:31 1 TAB Ondansetron HCl 4 mg Q4HP PRN IV 12/02/24 13:15 12/02/24 15:43 4 MG Docusate Sodium 100 mg BIDPRN PRN PO 12/02/24 13:15 Acetaminophen 650 mg Q6HP PRN PO 12/02/24 13:15 Morphine Sulfate 2 mg Q4HPRN PRN IV 12/02/24 13:15 12/04/24 09:49 2 MG Cefepime HCl 50 ml @ 12.5 mls/hr Q8H IV 12/03/24 09:00 12/04/24 09:49 12.5 MLS/HR Laboratory Results Laboratory Tests 12/03/24 05:28 Labs and/or images reviewed: Labs reviewed by me, Image(s) reviewed by me Assessment/Plan Assessment/Plan Breast biopsy report dated 11/26 24 from [facility]: 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 Gilman and she said she is not inclusion special educator Dr Kerns on vacation Spoke to Dr. Zavala and he advised that we do not have oncologist and patient has to go as an outpatient to an oncologist. Discussed with the patient about the biopsy findings and follow up as soon as possible A copy of the biopsy report given to the patient and advised to go to [facility] as soon as possible Plan discussed with: Patient, Other (RN Kayla) My Orders Orders - FRANKIE OVALLE MD Procedure Category Date Status Time * Surgical Consult CONS 12/03/24 Transmitted Communication Order ORDERS 12/03/24 Transmitted 12:37 Date of Service: Dec 04, 2024 Billing Provider: FRANKIE OVALLE MD Common Visit Codes: [id number] INP/OBS CARE(HIGH) FRANKIE OVALLE MD Dec 04, 2024 10:34
[2024-12-04] MEDS ORDERED: CEPH500C PO (10:36)
[2024-12-04] MEDS ORDERED: OXYC-998 PO (10:36)
--- NOTE | 2024-12-04 10:43 | DVHDS2 ---
Discharge Summary Date of Admission Dec 02, 2024 at 13:08 Date of Discharge: Dec 04, 2024 Admitting Diagnosis Right breast mass and pain Wounds: None Labs/Diagnostic Data: Laboratory Results Test 12/03/24 05:28 White Blood Count 6.8 10^3/uL (4.4-10.8) Red Blood Count 4.29 10^6/uL (4.0-5.20) Hemoglobin 12.7 g/dL (12.2-16.2) Hematocrit 37.6 % (36.0-46.0) Mean Corpuscular Volume 87.6 fL (80.0-100.0) Mean Corpuscular Hemoglobin 29.5 pg (28.0-32.0) Mean Corpuscular Hemoglobin Concent 33.7 g/dL (32.0-36.0) Red Cell Distribution Width 16.0 % (11.8-14.3) Platelet Count 346 10^3/uL (140-450) Mean Platelet Volume 7.4 fL (6.9-10.8) Neutrophils (%) (Auto) 65.0 % (37.0-80.0) Lymphocytes (%) (Auto) 25.1 % (10.0-50.0) Monocytes (%) (Auto) 8.1 % (0.0-12.0) Eosinophils (%) (Auto) 1.5 % (0.0-7.0) Basophils (%) (Auto) 0.3 % (0.0-2.0) Neutrophils # (Auto) 4.4 10 ^3/uL (1.6-8.6) Lymphocytes # (Auto) 1.7 10 ^3/uL (0.4-5.4) Monocytes # (Auto) 0.5 10 ^3/uL (0-1.3) Eosinophils # (Auto) 0.1 10 ^3/uL (0-0.8) Basophils # (Auto) 0 10 ^3/uL (0-0.2) Nucleated Red Blood Cells 0.1 % Sodium Level 137 mmol/L (136-145) Potassium Level 4.1 mmol/L (3.5-5.1) Chloride Level 109 mmol/L (98-107) Carbon Dioxide Level 23 mmol/L (20-31) Anion Gap 5 (5-15) Blood Urea Nitrogen 12 mg/dL (9-23) Creatinine 0.92 mg/dL (0.550-1.02) Glomerular Filtration Rate Calc 82 mL/min (>90) BUN/Creatinine Ratio 13.0 (10.0-20.0) Serum Glucose 114 mg/dL (74-106) Calcium Level 9.1 mg/dL (8.7-10.4) Total Bilirubin 0.2 mg/dL (0.2-1.0) Aspartate Amino Transferase (AST) 10 U/L (13-40) Alanine Aminotransferase (ALT) 12 U/L (7-40) Alkaline Phosphatase 76 U/L (46-116) Total Protein 6.4 g/dL (5.7-8.2) Albumin 3.8 g/dL (3.2-4.8) Other Laboratory Tests 12/03/24 05:28 Brief Hx & Hospital Course: 39-year-old female came in and admitted for right breast mass with swelling and tenderness. Right breast ultrasound showed in the right breast patient has had a right breast biopsy from [facility] on 11/26/2024. Right breast biopsy report from [facility] dated 11/26/2024 shows invasive ductal carcinoma poorly differentiated. Copy in the chart and also given to the patient. Surgical consult by Dr. Da Silva. Advised oncologist to see the patient. Dr. Dr Kerns on vacation. 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 He was given a copy of the biopsy result and advised to follow up with [facility] as soon as possible. She is telling she is going to [facility]. Prognosis poor Consults/Reason for consult Surgeon Dr. Da Silva Oncology consult could not be placed as no oncologist on-call Operations or Procedures Right breast ultrasound Condition at Discharge: Poor Final Diagnosis/Problems List Breast biopsy report dated 11/26 24 from [facility]: Poorly differentiated invasive ductal carcinoma right breast (Copy in chart) Right breast mass invasive ductal carcinoma, patient had biopsy on 11/26/2024 at [facility] Possible right breast infection: Cefepime Family history of breast cancer History of rhabdomyosarcoma status post chemotherapy radiation therapy, colectomy, presence of colostomy bag left lower quadrant Discharge Disposition: Home Discharge Instruct/Medications Diet: Regular Activity: Light activity Follow Up/Referral: Follow up with the [facility] as soon as possible for treatment of your right breast cancer Medications: Keflex Oxycodone Transmitted to pharmacy 35 (Time taken for discharge summary 35 minutes) Discharge Statement: "Patient was advised to return to the ER or call 911 if any headaches, dizziness, shortness of breath, chest pain, abdominal pain, bleeding, fevers, or worsening of medical condition. Patient was counseled about treatment plan, medications, possible side effects, patientverbalized understanding. All questions were answered to the best of my ability. This discharge took greater then 30 minutes in planning, reviewing documentation, counseling the patient, and discussing with other team members." ASSESSMENT ASSESSMENT Assessment Breast biopsy report dated 11/26 24 from [facility]: Poorly differentiated invasive ductal carcinoma right breast (Copy in chart) Right breast mass invasive ductal carcinoma, patient had biopsy on 11/26/2024 at [facility] Possible right breast infection: Cefepime Family history of breast cancer History of rhabdomyosarcoma status post chemotherapy radiation therapy, colectomy, presence of colostomy bag left lower quadrant Date of Service: Dec 04, 2024 Billing Provider: FRANKIE OVALLE MD Common Visit Codes: 92208-JYX/OBS DISCH DAY >30min FRANKIE OVALLE MD Dec 04, 2024 10:43
--- NOTE | 2024-12-04 13:06 | DVHPN2 ---
Progress Note Date Seen: Dec 04, 2024 Medical Necessity Reason Pt with a Central, PICC or Fol: No Objective vital signs Vital Sign Date Time Temp Pulse Resp B/P (MAP) Pulse Ox O2 Delivery O2 Flow Rate FiO2 12/04/24 09:49 93 18 113/88 12/04/24 09:00 98.1 94 98.1 12/04/24 08:00 Room Air* 0 21 Total Intake and Output 12/03/24 12/03/24 12/04/24 15:00 23:00 07:00 Intake Total 400 ml 770 ml 1300.0 ml Output Total 360 ml Balance 400 ml 410 ml 1300.0 ml medications Current Medications Medications Dose Ordered Sig/Oswaldo Route Start Time Stop Time Status Last Admin Dose Admin Acetaminophen/ Hydrocodone Bitart 1 tab Q4HP PRN PO 12/02/24 13:15 12/03/24 17:31 1 TAB Ondansetron HCl 4 mg Q4HP PRN IV 12/02/24 13:15 12/02/24 15:43 4 MG Docusate Sodium 100 mg BIDPRN PRN PO 12/02/24 13:15 Acetaminophen 650 mg Q6HP PRN PO 12/02/24 13:15 Morphine Sulfate 2 mg Q4HPRN PRN IV 12/02/24 13:15 12/04/24 09:49 2 MG Cefepime HCl 50 ml @ 12.5 mls/hr Q8H IV 12/03/24 09:00 12/04/24 09:49 12.5 MLS/HR laboratory and microbiology Laboratory Tests 12/03/24 05:28 Test 12/03/24 05:28 Range/Units Serum Glucose 114 H 74-106 mg/dL Problem List/Assessment/Plan Problem List/Assessment/Plan 12/04/24 EXPLAINED TO PATIENT THAT SHE HAS BIOPSY PROVEN CANCER OF THE RIGHT BREAST AND THAT WE ARE WAITING FOR AN ONCOLOGY OPINION REGARDING NEOADJUVANT TREATMENTS. ALL QUESTIONS ANSWERED Plan discussed with: Patient CARRIE ELKINS MD Dec 04, 2024 13:06
== END 2024-12-04 14:29 | disposition home or self-care (01) | DRG 599 ==
LOC: ER 09:54 → OVERFLOW 13:08 → EAST 21:56
PROVIDERS: ADMIT Family Medicine; ATTEND Family Medicine
DX: C50.511 Malignant neoplasm of lower-outer quadrant of right female breast (principal); N63.10 Unspecified lump in the right breast, unspecified quadrant; F17.210 Nicotine dependence, cigarettes, uncomplicated; Z92.21 Personal history of antineoplastic chemotherapy; Z92.3 Personal history of irradiation; Z93.3 Colostomy status; Z90.711 Acquired absence of uterus with remaining cervical stump; Z80.3 Family history of malignant neoplasm of breast
CPT/HCPCS: 36415; 76642; 80048; 80053; 85025; 96365; 96375; G0378; J0692; J2405

== ENCOUNTER 2025-06-26 02:31 | Emergency (ER) | payer MEDICARE, OTHER ==
[~2025-06-26] VITALS: Ht 160 cm; Wt 122.0 kg
[~2025-06-26 02:31] MED LIST changes: -ACET500T58 PO; -AMOX875T4 PO; -CEPH-509 PO; +CEPH500C PO; -IBUP-1456 PO; -METH-1182 PO; +OXYC-998 PO; -PRED20TA2 PO
[2025-06-26 02:32] VITALS: BP 135/101; PULSE 103; RESP 15; TEMP 97.7; O2SAT 100
--- NOTE | 2025-06-26 02:47 | ED.PDOC ---
History of Present Illness(SKN HPI Comments PT CAME TO THE ER WITH CC OF LEFT HAND SWELLING , PT STATES THAT SHE WAS PICKING AT AN AREA OF DRY SKIN ON HER HAND WHEN IT SPLIT OPEN, SHE LATER APPLIED LOTION TO THE AREA AND HER HAND BEGAN TO SWELL. PT HAS 2+ NON PITTING EDEMA. PT IS A&OX4 RR EVEN AND REGULAR NO DISTRESS NOTED AT THIS TIME Chief Complaint: Upper Extremity Time Seen by MD: 02:45 Primary Care Provider: [facility] History of Present Illness: Nurses Notes, Medications, Allergies Allergies: Coded Allergies: NO KNOWN ALLERGIES (Unverified , 02/02/18) Home Meds Active Scripts Oxycodone HCl (Oxycodone Hydrochloride) 10 Mg Tab, 10 MG PO QID PRN, #40 TAB Prov:FRANKIE OVALLE MD 12/04/24 Cephalexin Monohydrate (Cephalexin) 500 Mg Cap, 1 CAP PO QID, #40 CAP Prov:FRANKIE OVALLE MD 12/04/24 Information Source: Patient Mode of Arrival: Ambulatory Past Medical History PAST MEDICAL HISTORY: Cancer Surgical History: Hysterectomy 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 Family History Family History: Reviewed,noncontributory to illness, Unknown Social History Smoker: Cigarettes, Less Than 1 Pack/Day Alcohol: Denies ETOH Use Drugs: Denies Drug Use Lives In: Home All Other Systems: Reviewed and Negative (SEE HPI) Physical Exam General Appearance: No Apparent Distress, Normal HEENT: Normal ENT Inspection, Pharynx Normal, TMs Normal Neck: Full Range of Motion, Non-Tender, Normal, Normal Inspection Respiratory: Chest Non-Tender, Lungs Clear, No Accessory Muscle Use, No Respiratory Distress, Normal Breath Sounds Cardiovascular: No Edema, No JVD, No Murmur, No Gallop, Normal Peripheral Pulses, Regular Rate/Rhythm Breast Exam: Deferred Gastrointestinal: No Organomegaly, Non Tender, No Pulsatile Mass, Normal Bowel Sounds, Soft Genitalia: Deferred Pelvic: Deferred Rectal: Deferred Extremities: No calf tenderness, Normal capillary refill, Normal inspection, Normal range of motion, Non-tender, No pedal edema Musculoskeletal : Apperance: Normal Neurologic: Alert, director security risk management II-XII nml as Tested, No Motor Deficits, Normal Affect, Normal Mood, No Sensory Deficits Cerebellar Function: Normal Reflexes: Normal Skin: Dry, Normal Color, Warm Lymphatic: No Adenopathy Was a procedure done? Was a procedure done?: No Differential Diagnosis (INTG) Differential Diagnosis: Cellulitis, Hematoma, Puncture Wound Differential Diagnosis: Abscess X-Ray, Labs, Meds, VS Vital Signs Date Time Temp Pulse Resp B/P (MAP) Pulse Ox O2 Delivery O2 Flow Rate FiO2 06/26/25 02:32 97.7 103 15 135/101 100 97.7 Time of 1ST Reevaluation: 02:45 Reevaluation 1ST: Unchanged Reevaluation 2ND: Improved Patient Education/Counseling: Diagnosis, Treatment, Need For Follow Up Family Education/Counseling: No Family Present SEPSIS Sepsis Screen Date sepsis recognized/suspect: Jun 26, 2025 Time Sepsis recognized/suspect: 236 Recent Procedure: No On Antibiotic Therapy: No Respiratory Rate >20: No Heart Rate >90: Yes Temp<36 C (96.8 F) or >38.3 C: No SBP <90 or MAP <65 mmHG: No New Acute Mental Status Change: No Is the patient on CPAP, BIPAP,: No Vital Signs Date Time Temp Pulse Resp B/P (MAP) Pulse Ox O2 Delivery O2 Flow Rate FiO2 06/26/25 02:32 97.7 103 15 135/101 100 97.7 Departure 1 Departure Disposition: 01 HOME / SELF CARE / HOMELESS Condition: Stable Discharged With: Self Critical Care Note Critical Care Time?: No Stability Stability form required: TERE Gillespie Jun 26, 2025 02:47
== END 2025-06-26 03:31 | disposition left against medical advice (07) ==
LOC: ER 02:31
DX: M79.89 Other specified soft tissue disorders (principal); Z79.899 Other long term (current) drug therapy